=== PATIENT | female | born 1990 | race Caucasian/White ===

== ENCOUNTER 2019-04-06 02:39 | Emergency (ER) | payer OTHER ==
[~2019-04-06] VITALS: Ht 175.3 cm; Wt 72.7 kg
[2019-04-06] MEDS ORDERED: AUGM500T34 PO (04:50)
[2019-04-06 04:58] VITALS: BP 128/78
== END 2019-04-06 05:01 | disposition home or self-care (01) ==
LOC: M ED 02:39
DX: J02.9 Acute pharyngitis, unspecified (principal); Z88.1 Allergy status to other antibiotic agents; Z88.2 Allergy status to sulfonamides; Z88.8 Allergy status to other drugs, medicaments and biological substances

== ENCOUNTER → 2019-07-02 | Outpatient (CLI) | payer OTHER ==
[~2019-07-02] MED LIST: AUGM500T34 PO
--- NOTE | 2019-07-02 13:06 | REP ---
REASON: Pelvic pain. PRIORS: None. AP pelvis and bilateral AP and frog lateral views of the hip. AP PELVIS: A single AP view of the pelvis was performed. The hip joint spaces are symmetric and relatively well maintained. There is no acute fracture or destructive osseous lesion. RIGHT HIP: FINDINGS: The hip joint space is symmetric and relatively well maintained. T here is no acute or destructive osseous lesion. LEFT HIP: FINDINGS: The hip joint space is symmetric and relatively well maintained. T here is no acute or destructive osseous lesion. There is an incidental synovial herniation pit seen in the femoral neck region. Electronically Signed by Marco Gillespie DO 07/02/2019 02:38 P
== END ==
LOC: M SMT 09:49
PROVIDERS: ATTEND Family Medicine
DX: R10.2 Pelvic and perineal pain (principal)

== ENCOUNTER → 2019-10-17 | Outpatient (CLI) | payer OTHER ==
[2019-10-17 17:50] LABS: FREE T4 0.91 NG/DL (0.76-1.46); THYROID STIMULATING HORMONE 1.4 uIU/ML (0.358-3.740)
== END ==
LOC: M PLALAB 12:24
PROVIDERS: ATTEND Family Medicine
DX: R94.6 Abnormal results of thyroid function studies (principal)

== ENCOUNTER → 2019-11-13 | Outpatient (REF) | payer OTHER ==
[~2019-11-13] MED LIST changes: +COLA100C5 PO; +IBUP-1022; +MIRA1POW3 PO; +ONDA-83; +REGL10TA6 PO
== END ==
LOC: M LAB REF 16:56
PROVIDERS: ATTEND Physician Assistant
DX: R39.12 Poor urinary stream (principal)

== ENCOUNTER 2019-11-15 18:11 | Emergency (ER) | payer OTHER ==
[~2019-11-15] VITALS: Ht 175.3 cm; Wt 78.6 kg
[~2019-11-15 18:11] MED LIST changes: -COLA100C5 PO; -IBUP-1022; -MIRA1POW3 PO; -ONDA-83; -REGL10TA6 PO
[2019-11-15] MEDS ORDERED: MIRA1POW3 PO (18:28)
[2019-11-15] MEDS ORDERED: ONDA-83 (18:28)
[2019-11-15] MEDS ORDERED: COLA100C5 PO ×2 (18:28)
[2019-11-15] MEDS ORDERED: IBUP-1022 (18:28)
[2019-11-15] MEDS ORDERED: ONDANSETRON 4MG/2ML VIAL (J2405) IV ONE (19:30)
[2019-11-15] MEDS ORDERED: NS 1,000 ML IV ONE (19:30)
[2019-11-15] MEDS ORDERED: KETOROLAC 30 MG/ML VIAL (J1885) IV ONE (19:30)
[2019-11-15 19:46] LABS: BASO % 0.5 % (0.0-1.0); EOS # 0.1 10^3/uL (0.0-0.5); EOS % 1.2 % (0.0-3.0); HEMATOCRIT 38.9 % (36.0-47.0); HEMOGLOBIN 13.2 g/dl (12.0-15.5); LYMPH # 2.5 10^3/uL (1.5-5.0); LYMPH % 29.8 % (24.0-44.0); MEAN CORPUSCULAR HEMOGLOBIN 30.5 pg (27.0-33.0); MEAN CORPUSCULAR HGB CONC 33.9 g/dl (32.0-36.5); MEAN CORPUSCULAR VOLUME 89.8 fl (80.0-96.0); MONO # 0.6 10^3/uL (0.0-0.8); MONO % 7.4 % (0.0-5.0); NEUTROPHILS # 5.2 10^3/uL (1.5-8.5); PLATELET COUNT, AUTOMATED 265 10^3/uL (150-450); RED BLOOD COUNT 4.33 10^6/uL (4.00-5.40); WHITE BLOOD COUNT 8.5 10^3/uL (4.0-10.0)
[2019-11-15 20:23] LABS: ALBUMIN 4.1 GM/DL (3.2-5.2); BILIRUBIN,DIRECT 0.1 MG/DL (0.0-0.2); BILIRUBIN,TOTAL 0.5 MG/DL (0.2-1.0); TOTAL PROTEIN 7.7 GM/DL (6.4-8.2)
[2019-11-15] MEDS ORDERED: METOCLOPRAMIDE INJ 10MG/2ML VIAL (J2765) IV ONE (20:45)
[2019-11-15] MEDS ORDERED: MECLIZINE 12.5 MG TAB PO ONE (21:15)
[2019-11-15] MEDS ORDERED: ISOVUE-370 76% 100ML VIAL (Q9967) As Ordered ONE (22:27)
--- NOTE | 2019-11-15 23:37 | REPVR ---
PROCEDURE INFORMATION: Exam: CT Abdomen And Pelvis With Contrast Exam date and time: 11/15/2019 10:51 PM Age: 29 years old Clinical indication: Abdominal pain; Localized; Right lower quadrant (rlq); Prior surgery; Surgery date: <1 month; Additional info: Rlq pain, recent appendectomy, severe nausea, dizziness TECHNIQUE: Imaging protocol: Computed tomography of the abdomen and pelvis with intravenous contrast. Radiation optimization: All CT scans at this facility use at least one of these dose optimization techniques: automated exposure control; mA and/or kV adjustment per patient size (includes targeted exams where dose is matched to clinical indication); or iterative reconstruction. Contrast material: ISO; Contrast volume: 100 ml; Contrast route: AC; COMPARISON: CR HIPS BILAT 2 VIEW W/AP PELVIS 07/02/2019 10:01 AM FINDINGS: Liver: The liver attenuation is 105 Hounsfield units and the spleen is 142 Hounsfield units. Probable right hepatic cyst measuring 6 mm. Gallbladder and bile ducts: Normal. No calcified stones. No ductal dilation. Pancreas: Normal. No ductal dilation. Spleen: Normal. No splenomegaly. Adrenals: Normal. No mass. Kidneys and ureters: Normal. No hydronephrosis. Stomach and bowel: There is a linear orientation of sutures or densities extending cephalad from the cecal tip suggesting prior appendectomy. Appendix: No evidence of appendicitis. Intraperitoneal space: Unremarkable. No free air. No significant fluid collection. Vasculature: Unremarkable. No abdominal aortic aneurysm. Lymph nodes: Unremarkable. No enlarged lymph nodes. Bladder: Unremarkable as visualized. Reproductive: Left ovarian follicle measuring up to 17 mm. Bones/joints: Unremarkable. No acute fracture. Soft tissues: Unremarkable. IMPRESSION: 1. Question of prior appendectomy. 2. Fatty infiltration of the liver. 3. Otherwise negative CT abdomen/pelvis. Electronically signed by: Jm Sherwood On 11/15/2019 23:37:02 PM
[2019-11-15 23:56] VITALS: BP 118/75
[2019-11-16] MEDS ORDERED: REGL10TA6 PO (00:14)
== END 2019-11-16 00:37 | disposition home or self-care (01) ==
LOC: M ED 18:11
DX: R42 Dizziness and giddiness (principal); F33.9 Major depressive disorder, recurrent, unspecified; F41.9 Anxiety disorder, unspecified; N80.9 Endometriosis, unspecified; Z88.1 Allergy status to other antibiotic agents; Z88.2 Allergy status to sulfonamides; Z88.5 Allergy status to narcotic agent; Z88.8 Allergy status to other drugs, medicaments and biological substances
CPT/HCPCS: 36415; 74177; 80047; 80076; 81001; 83690; 85025; 86850; 86900; 86901; 96361; 96374; 96375; 99284; J1885; J2405; J2765; Q9967

== ENCOUNTER → 2020-08-21 | Outpatient (CLI) | payer OTHER ==
[~2020-08-21] MED LIST changes: +COLA100C5 PO; +IBUP-1022; +MIRA1POW3 PO; +ONDA-83; +REGL10TA6 PO
--- NOTE | 2020-08-21 13:57 | REPPI ---
INDICATION: PAIN LEFT FOOT. COMPARISON: None. TECHNIQUE: Four views FINDINGS: The joint spaces are symmetric and relatively well maintained. There is no evidence of acute fracture or destructive osseous lesion. IMPRESSION: Negative. <Electronically signed by Marco Gillespie > 08/21/20 [id number]
== END ==
LOC: M PLAIMG 12:11
PROVIDERS: ATTEND Physician Assistant
DX: M79.672 Pain in left foot (principal)

== ENCOUNTER 2020-11-23 09:17 | Emergency (ER) | payer OTHER ==
[~2020-11-23] VITALS: Ht 175.3 cm; Wt 81.2 kg
--- OUTSIDE RECORDS SUMMARY | 2020-11-23 09:23 | CCD | Continuity of Care Document ---
Author Author Mable DEL CID Organization [place] [address] Phone [phone] Care Team Providers Care Assistant Professor Of Biology Name Role Phone Shavonne Sam D.O. AUTM Problems Active Problems Provider Date Allergic rhinitis PRAVEEN Rubio Onset: 06/07/2019 Social History Type Date Description Comments Sex Unknown ETOH Use Occasionally consumes alcohol Tobacco Use Start: Unknown Patient has never smoked Recreational Drug Use Denies Drug Use Smoking Status Reviewed: 07/04/19 Patient has never smoked Exercise Type/Frequency Walks 3 times a week Sun Exposure Uses sunscreen Seat Belt/Car Seat Always uses seat belt Allergies, Adverse Reactions, Alerts Active Allergies Reaction Severity Comments Date Sulfamethoxazole / Trimethoprim 05/08/2019 Cefzil 05/08/2019 Medications Active Medications SIG Qnty Indications Ordering Provide r Date Flonase Allergy Relief 50mcg/Act Suspension 2 sprays in each nostril daily 9.900ml Shavonne Schafer D.OSorin 09/12/2019 Montelukast Sodium 10mg Tablets 1 by mouth every day 90tabs Shavonne Sam D.OSorin Multivitamin Adult Tablets 1 by mouth every day Unknown Medications Administered in Office Medication SIG Qnty Indications Ordering Provider Date Immunization Administration Single Or Co mbination Injection Nurse 07/09/2020 Immunization Administration Single Or Co mbination Injection Nurse 08/12/2019 Immunizations CPT Code Status Date Vaccine Lot # [id number] Given 07/09/2020 Influenza Virus Vaccine, Quadrivalent, Split, Preservative Free 61751 Given 07/09/2020 Influenza Virus Vaccine, Quadrivalent, Split, Preservative Free [id number] Given 08/12/2019 Influenza Virus Vaccine, Quadrivalent, Split, Preservative Free [id number] Vital Signs Date Vital Result Comment 11/06/2020 10:32am BP Systolic 116 mmHg BP Diastolic 68 mmHg Height 68.8 inches 5'8.80" Weight 181.50 lb BMI (Body Mass Index) 27.0 kg/m2 Heart Rate 91 /min Respiratory Rate 18 /min Body Temperature 98.1 F O2 % BldC Oximetry 96 % [place] Body Weight 140 lb 08/21/2020 11:34am BP Systolic 116 mmHg BP Diastolic 74 mmHg Height 68.8 inches 5'8.80" Weight 182.12 lb BMI (Body Mass Index) 27.0 kg/m2 Heart Rate 87 /min Respiratory Rate 18 /min Body Temperature 98.3 F O2 % BldC Oximetry 98 % [place] Body Weight 140 lb Results Test Acquired Date Facility Test Result H/L Range Note Laboratory test finding 11/06/2020 Inhouse Inhouse Urine positive Procedures Description No Information Available Medical Devices Description No Information Available Encounters Type Date Location Provider Dx Diagnosis Office Visit 11/06/2020 10:30a [facility] PRAVEEN Chan Z3A.01 Less than 8 weeks gestation of Z33.1 state, incidental Office Visit 08/21/2020 11:30a [facility] PRAVEEN Chan M79.672 Pain in left foot Office Visit 07/09/2020 10:00a [facility] Valeria boogie Z23 Encounter for immunization Assessments Date Code Description Provider 11/06/2020 Z3A.01 Less than 8 weeks gestation of p regnancy PRAVEEN Chan 11/06/2020 Z33.1 state, incidental PRAVEEN Neil 08/21/2020 M79.672 Pain in left foot PRAVEEN Kapoor 07/09/2020 Z23 Encounter for immunization Nurse Plan of Treatment No Information Available Functional Status Description No Information Available Mental Status Description No Information Available Referrals Refer to Reason for Referral Status Appt Date Ken Delgado MD . Prior IVF. and norm al conception with this current . looking to establish care and interested in a . Sent [facility] [address] [place] [address] [phone]
--- OUTSIDE RECORDS SUMMARY | 2020-11-23 09:24 | CCD | Continuity of Care Document ---
Author Mable Damon [facility] Organization Unknown Address [address] [place] [address] Phone [phone] Care Team Providers Care Ceramic Painter Name Role Phone Renée Jas Gipson AUTM [phone] Shavonne Sam D.O AUTM [phone] Problems Active Problems Provider Date Allergic rhinitis Onset: 06/07/2019 Social History Type Date Description Comments Sex Unknown ETOH Use Rare Tobacco Use Start: Unknown Patient has never smoked Recreational Drug Use Denies Drug Use Smoking Status Reviewed: 10/11/19 Patient has never smoked Allergies, Adverse Reactions, Alerts Active Allergies Reaction Severity Comments Date Sulfamethoxazole / Trimethoprim rash / st omach ache 10/11/2019 Cefzil rash / stomach ache 10/11/19 20 Inactive Allergies Sulfamethoxazole-Trimethoprim 10/14/2019 Cefprozil 10/14/2019 Trimethoprim unknown per pt 10/14/2019 Sulfamethoxazole unknown per pt 0 Cephalosporins 10/14/2019 Cephcil unknown 10/14/2019 Cefprozil 250 MG Oral Tablet [Cefzil] Nausea 10/14/2019 Sulfamethoxazole 80 MG/ML / Trimethoprim 16 MG/ML Injectable Nausea 10/14/2019 Bactrim Rash 10/14/2019 Cefprozil Rash 10/14/2019 Cefzil 10/14/2019 Sulfamethoxazole / Trimethoprim 10/14/2019 Cefzil Abdominal pain Mild 10/14/2019 Sulfamethoxazole / Trimethoprim Hives Mild 10/14/2019 Cefzil 10/14/2019 Sulfamethoxazole / Trimethoprim 10/14/2019 Medications Active Medications SIG Qnty Indications Ordering Provide r Date Singulair 10mg Tablets 1 tablet by mouth every night at bedtime 30tabs Dee Dee Walker M.D. Fluticasone Propionate Nasal [place] 24- H our 50mcg/Act Suspension 2 sprays each nostril every day Unknown Azelastine HCL (Nasal) 0.1% Soluti on 1 spray in each nostril twice a day as directed Un known Multivitamin Tablets Unknown Immunizations CPT Code Status Date Vaccine Lot # [id number] Given 08/12/2019 Influenza Virus Vaccine, Quadrivalent, Split, Preservative Free Vital Signs Date Vital Result Comment 08/04/2020 1:24pm Height 69 inches 5'9" Weight 178.00 lb BMI (Body Mass Index) 26.3 kg/m2 05/22/2020 12:30pm Body Temperature 99.4 F Results Description No Information Available Procedures Date Code Description Status 08/04/2020 61967 Myringotomy W/ Aspiration/Eustac hian Tube Inflate Completed Medical Devices Description No Information Available Encounters Type Date Location Provider Dx Diagnosis Office Visit 08/04/2020 1:00p [facility], [facility] Brennon Walker M.D. H92.03 Otalgia, bilateral J30.9 Allergic rhinitis, unspecifi ed J34.3 Hypertrophy of nasal turbina justin J34.2 Deviated nasal septum Office Visit 05/22/2020 12:10p [facility], RISHABH Walker M.D. H92.03 Otalgia, bilateral J30.9 Allergic rhinitis, unspecifi ed J34.3 Hypertrophy of nasal turbina justin J34.2 Deviated nasal septum Assessments Date Code Description Provider 08/04/2020 H92.03 Otalgia, bilateral Dee Dee mayberry M.D. 08/04/2020 J30.9 Allergic rhinitis, unspecified A rubio Walker M.D. 08/04/2020 J34.3 Hypertrophy of nasal turbinates Dee Dee Walker M.D. 08/04/2020 J34.2 Deviated nasal septum Dee Dee ramon M.D. 05/22/2020 H92.03 Otalgia, bilateral Dee Dee mayberry M.D. 05/22/2020 J30.9 Allergic rhinitis, unspecified A my Keon Walker M.D. 05/22/2020 J34.3 Hypertrophy of nasal turbinates Dee Dee Walker M.D. 05/22/2020 J34.2 Deviated nasal septum Dee Dee ramon M.D. Plan of Treatment No Information Available Functional Status Description No Information Available Mental Status Description No Information Available Referrals Refer to Dr Reason for Referral Status Appt Date Sam Francis MD Eustachian tube balloon dilation Sent [address] [facility] [address] [phone] Chapo Valdivia M.D. Allergy Evaluation Closed [address], [place] [address] [phone]
--- OUTSIDE RECORDS SUMMARY | 2020-11-23 09:24 | CCD | Continuity of Care Document ---
Author Author Mable DEL CID Organization [place] [address] Phone [phone] Care Team Providers Care Asphalt Heater Operator Name Role Phone Shavonne Sam D.O. AUTM [...] CPT Code Status Date Vaccine Lot # [id number] Given 07/09/2020 Influenza Virus Vaccine, Quadrivalent, Split, Preservative Free [id number] Given 07/09/2020 Influenza Virus Vaccine, Quadrivalent, Split, Preservative Free [id number] Given 08/12/2019 Influenza Virus Vaccine, Quadrivalent, Split, Preservative Free [id number] Vital Signs Date Vital Result Comment 11/06/2020 10:32am BP Systolic 116 mmHg BP Diastolic 68 mmHg Height 68.8 inches 5'8.80" Weight 181.50 lb BMI (Body Mass Index) 27.0 kg/m2 Heart Rate 91 /min Respiratory Rate 18 /min Body Temperature 98.1 F O2 % BldC Oximetry 96 % [place] Body Weight 140 lb 08/21/2020 11:34am BP Systolic 116 mmHg BP Diastolic 74 mmHg Height 68.8 inches 5'8.80" Weight 182.12 lb BMI (Body Mass Index) 27.0 kg/m2 Heart Rate 87 /min Respiratory Rate 18 /min Body Temperature 98.3 F O2 % BldC Oximetry 98 % [place] Body Weight 140 lb Results Description No Information Available Procedures Description No Information Available Medical Devices Description No Information Available Encounters Type Date Location Provider Dx Diagnosis Office Visit 08/21/2020 11:30a [facility] PRAVEEN Chan M79.672 Pain in left foot Office Visit 07/09/2020 10:00a Family Medicine [facility] Valeria boogie Z23 Encounter for immunization Assessments Date Code Description Provider 11/06/2020 Z3A.01 Less than 8 weeks gestation of p beatrice PRAVEEN Chan 11/06/2020 Z33.1 state, incidental PRAVEEN Neil 08/21/2020 M79.672 Pain in left foot PRAVEEN Kapoor 07/09/2020 Z23 Encounter for immunization Nurse Plan of Treatment 11/06/2020 - PRAVEEN Chan* Z3A.01 Less than 8 weeks gestation of * New Labs:* Inhouse Urine , Ordered: 11/06/20 * Referral:* Ken Delgado MD, teacher associate/Phys/Osteo * Z33.1 state, incidental Functional Status Description No Information Available Mental Status Description No Information Available Referrals Refer to Reason for Referral Status Appt Date Ken Delgado MD . Prior IVF. and norm al conception with this current . looking to establish care and interested in a . Created [facility] [address] [place] [address] [phone]
--- OUTSIDE RECORDS SUMMARY | 2020-11-23 09:24 | CCD | Continuity of Care Document ---
Author Author Mable SMITH Organization Unknown Address [address], [place] [address] Phone [phone] Care Team Providers Care School Nurse Name Role Phone Shavonne Sam Oksana DO AUTM Dee Dee Hairston MD AUTM [phone] Problems Active Problems Provider Date Allergic rhinitis due to house dust mite Chapo Smith M.D. Onset: 07/08/2020 Note: 3+ reaction to dust mites on intra dermal test completed in 2019. Social History Type Date Description Comments Sex Unknown Tobacco Use Reviewed: 10/08/20 Patient has never smoked Smoking Status Reviewed: 10/08/20 Patient has never smoked Allergies, Adverse Reactions, Alerts Active Allergies Reaction Severity Comments Date Sulfamethoxazole / Trimethoprim Hives 07/08/2020 Cefzil Nausea 07/08/2020 Chlorhexidine Hives 07/08/2020 Medications Active Medications SIG Qnty Indications Ordering Provide r Date Montelukast Sodium 10mg Tablets Take 1 Tablet By Mouth Once Daily AT Night AT Bedtime U nknown Flonase Sensimist 27 .5mcg/[place] Suspension 2 sprays each nostril every night Unknown Immunizations Description No Information Available Vital Signs Date Vital Result Comment 10/08/2020 10:33am Weight 182.12 lb Height 69.5 inches 5'9.50" Heart Rate 102 /min Respiratory Rate 18 /min BP Systolic 119 mmHg BP Diastolic 74 mmHg BMI (Body Mass Index) 26.5 kg/m2 07/08/2020 11:14am Weight 181.12 lb Height 69.5 inches 5'9.50" Heart Rate 92 /min Respiratory Rate 18 /min BP Systolic 108 mmHg BP Diastolic 77 mmHg BMI (Body Mass Index) 26.4 kg/m2 Results Description No Information Available Procedures Date Code Description Status 07/08/2020 62111 Allergy Tests Intrad ermal W/ Allergenic Extr Immediate Reaction Completed 07/08/2020 62357 Allergy Tests Percutaneous W/ Al lergenic Extracts Completed Medical Devices Description No Information Available Encounters Type Date Location Provider Dx Diagnosis Office Visit 10/08/2020 10:30a Main Office Chapo Smith M.D. J30.89 Other allergic rhinitis Assessments Date Code Description Provider 10/08/2020 J30.89 Allergic rhinitis due to house d ust mite Chapo Smith M.D. Plan of Treatment Future Appointment(s):* 04/08/2021 10:30 am - Chapo Smith M.D. at Main Office 10/08/2020 - Chapo Smith M.D.* J30.89 Allergic rhinitis due to house dust mite* Recommendations:* The patient should continue using nasal spray every night. The spray should be used consistently to be effective. I still reviewed effective allergy avoidance measures for dust mites. Because of the severity of allergy problem allergy immunotherapy should be considered strongly if symptoms continue or fail to improve with medications. I explained the risks and benefits associated with immunotherapy at this time as well. * All * Follow up:* 6 months. Sooner if needed. Functional Status Description No Information Available Mental Status Description No Information Available Referrals Description No Information Available
--- OUTSIDE RECORDS SUMMARY | 2020-11-23 09:24 | CCD | Continuity of Care Document ---
Author Mable Damon [facility] Organization Unknown Address [address] [place] [address] Phone [phone] Care Team Providers Care Rail Car Repairer Name Role Phone Renée Jas Gipson AUTM [phone] Shavonne Sam D.O AUTM [phone] Problems Active Problems Provider Date Allergic [...] Dee Dee Walker M.D. Fluticasone Propionate Nasal [place] 24- H our 50mcg/Act Suspension 2 sprays each nostril every day Unknown Azelastine HCL (Nasal) 0.1% Soluti on 1 spray in each nostril twice a day as directed Un known Multivitamin Tablets Unknown Immunizations CPT Code Status Date Vaccine Lot # [id number] Given 08/12/2019 Influenza Virus Vaccine, Quadrivalent, Split, Preservative Free Vital Signs Date Vital Result Comment 08/04/2020 1:24pm Height 69 inches 5'9" Weight 178.00 lb BMI (Body Mass Index) 26.3 kg/m2 05/22/2020 12:30pm Body Temperature 99.4 F Results Description No Information Available Procedures Date Code Description Status 09/21/2020 06094 Tympanometry Completed 09/21/2020 63585 Audiometry Threshold Evaluation & Speech Recognition Completed 08/04/2020 51115 Myringotomy W/ Aspiration/Eustac hian Tube Inflate Completed Medical Devices Description No Information Available Encounters Type Date Location Provider Dx Diagnosis Office Visit 08/04/2020 1:00p [facility], [facility] Brennon Walker M.D. H92.03 Otalgia, bilateral J30.9 Allergic rhinitis, unspecifi ed J34.3 Hypertrophy of nasal turbina justin J34.2 Deviated nasal septum Office Visit 05/22/2020 12:10p [facility] H92.03 Otalgia, bilateral J30.9 Allergic rhinitis, unspecifi ed J34.3 Hypertrophy of nasal turbina justin J34.2 Deviated nasal septum Assessments Date Code Description Provider 09/21/2020 H92.02 Otalgia, left ear Ann harman, CCC-A 09/21/2020 H90.3 Sensorineural hearing loss, bila teral Ann Gillespie, CCC-A 09/21/2020 H92.02 Otalgia, left ear Dee Dee swanson M.D. 08/04/2020 H92.03 Otalgia, bilateral Dee Dee mayberry M.D. 08/04/2020 J30.9 Allergic rhinitis, unspecified A rubio Walker M.D. 08/04/2020 J34.3 Hypertrophy of nasal turbinates Dee Dee Walker M.D. 08/04/2020 J34.2 Deviated nasal septum Dee Dee ramon M.D. 05/22/2020 H92.03 Otalgia, bilateral Dee Dee mayberry M.D. 05/22/2020 J30.9 Allergic rhinitis, unspecified A rubio Walker M.D. 05/22/2020 J34.3 Hypertrophy of nasal turbinates Dee Dee Walker M.D. 05/22/2020 J34.2 Deviated nasal septum Dee Dee ramon M.D. Plan of Treatment No Information Available Functional Status Description No Information Available Mental Status Description No Information Available Referrals Refer to Dr Reason for Referral Status Appt Date Sam Francis MD Eustachian tube balloon dilation Sent [address] [place] [address] [phone] Chapo Valdivia M.D. Allergy Evaluation Closed [address], [place] [address] [phone]
--- OUTSIDE RECORDS SUMMARY | 2020-11-23 09:24 | CCD | Continuity of Care Document ---
Author Author NurseMable Organization Unknown Address [address] [place] [address] [address] [place] [address] Phone [phone] Care Team Providers Care Vascular Technician Name Role Phone Shavonne Sam D.O. AUTM [phone] Problems Active Problems Provider Date Allergic rhinitis [...] mouth every day 90tabs Shavonne Sam D.OSorin Ibuprofen 600mg Tablets Take 1 Tablet By Mouth Every 6 Hours Unknown Medications Administered in Office Medication SIG Qnty Indications Ordering Provider Date Immunization Administration Single Or Co mbination Injection Nurse 07/09/2020 Immunization Administration Single Or Co mbination Injection Nurse 08/12/2019 Immunizations CPT Code Status Date Vaccine Lot # [id number] Given 07/09/2020 Influenza Virus Vaccine, Quadrivalent, Split, Preservative Free [id number] Given 07/09/2020 Influenza Virus Vaccine, Quadrivalent, Split, Preservative Free [id number] Given 08/12/2019 Influenza Virus Vaccine, Quadrivalent, Split, Preservative Free [id number] Vital Signs Date Vital Result Comment 08/21/2020 11:34am BP Systolic 116 mmHg BP Diastolic 74 mmHg Height 68.8 inches 5'8.80" Weight 182.12 lb BMI (Body Mass Index) 27.0 kg/m2 Heart Rate 87 /min Respiratory Rate 18 /min Body Temperature 98.3 F O2 % BldC Oximetry 98 % [place] Body Weight 140 lb 11/13/2019 2:59pm BP Systolic 114 mmHg BP Diastolic 74 mmHg Height 68.8 inches 5'8.80" Weight 173.25 lb BMI (Body Mass Index) 25.7 kg/m2 Heart Rate 95 /min Respiratory Rate 20 /min Body Temperature 98.3 F O2 % BldC Oximetry 95 % [place] Body Weight 140 lb Results Description No Information Available Procedures Description No Information Available Medical Devices Description No Information Available Encounters Type Date Location Provider Dx Diagnosis Office Visit 08/21/2020 11:30a Family Medicine [facility] PRAVEEN Chan M79.672 Pain in left foot Office Visit 07/09/2020 10:00a [facility] Valeria boogie Z23 Encounter for immunization Assessments Date Code Description Provider 08/21/2020 M79.672 Pain in left foot PRAVEEN Kapoor 07/09/2020 Z23 Encounter for immunization Nurse Plan of Treatment 08/21/2020 - PRAVEEN Chan* M79.672 Pain in left foot* Comments:* Please get an x ray to exclude fracture, dislocation, or subluxation. Try to ranjit tape your toes and apply ice to help with pain. Functional Status Description No Information Available Mental Status Description No Information Available Referrals Description No Information Available
--- OUTSIDE RECORDS SUMMARY | 2020-11-23 09:24 | CCD | Continuity of Care Document ---
Author Author Mable DEL CID Organization [place] [address] Phone [phone] Care Team Providers Care Scrap Crane Operator Name Role Phone Shavonne Sam D.O. [...] CPT Code Status Date Vaccine Lot # [id number] Given 07/09/2020 Influenza Virus Vaccine, Quadrivalent, Split, Preservative Free [id number] Given 07/09/2020 Influenza Virus Vaccine, Quadrivalent, Split, Preservative Free [id number] Given 08/12/2019 Influenza Virus Vaccine, Quadrivalent, Split, Preservative Free [id number] Vital Signs Date Vital Result Comment 11/06/2020 10:32am BP Systolic 116 mmHg BP Diastolic 68 mmHg Height 68.8 inches 5'8.80" Weight 181.50 lb BMI (Body Mass Index) 27.0 kg/m2 Heart Rate 91 /min Respiratory Rate 18 /min Body Temperature 98.1 F O2 % BldC Oximetry 96 % Merrick Body Weight 140 lb 08/21/2020 11:34am BP Systolic 116 mmHg BP Diastolic 74 mmHg Height 68.8 inches 5'8.80" Weight 182.12 lb BMI (Body Mass Index) 27.0 kg/m2 Heart Rate 87 /min Respiratory Rate 18 /min Body Temperature 98.3 F O2 % BldC Oximetry 98 % Merrick Body Weight 140 lb Results Test Acquired Date Facility Test Result H/L Range Note Laboratory test finding 11/06/2020 Inhouse Inhouse Urine positive Procedures Description No Information Available Medical Devices Description No Information Available Encounters Type Date Location Provider Dx Diagnosis Office Visit 08/21/2020 11:30a Family Medicine [facility] PRAVEEN Chan M79.672 Pain in left foot Office Visit 07/09/2020 10:00a Family Medicine [facility] Valeria boogie Z23 Encounter for immunization Assessments Date Code Description Provider 11/06/2020 Z3A.01 Less than 8 weeks gestation of p beatrice PRAVEEN Chan 11/06/2020 Z33.1 state, incidental PRAVEEN Neil 08/21/2020 M79.672 Pain in left foot PRAVEEN Kapoor 07/09/2020 Z23 Encounter for immunization Nurse Plan of Treatment 11/06/2020 - PRAVEEN Chan* Z3A.01 Less than 8 weeks gestation of * Referral:* Ken Delgado MD, dining room host/Phys/Osteo * Z33.1 state, incidental Functional Status Description No Information Available Mental Status Description No Information Available Referrals Refer to Reason for Referral Status Appt Date Ken Delgado MD . Prior IVF. and norm al conception with this current . looking to establish care and interested in a . [facility] [address] [place] [address] [phone]
--- OUTSIDE RECORDS SUMMARY | 2020-11-23 09:24 | CCD ---
Author Author [facility] Organization [facility] Address Unknown Phone Unavailable Care Team Providers Care Clean Room Operator Name Role Phone SONIA SMITH MD Unavailable Unavailable SONIA SMITH MD Unavailable Unavailable SONIA SMITH MD Unavailable Unavailable SONIA SMITH MD Unavailable Unavailable SONIA SMITH MD Unavailable Unavailable SONIA SMITH MD Unavailable Unavailable SONIA SMITH MD Unavailable Unavailable SONIA SMITH MD Unavailable Unavailable SONIA SMITH MD Unavailable Unavailable SONIA SMITH MD Unavailable Unavailable SONIA SMITH MD Unavailable Unavailable SONIA SMITH MD Unavailable Unavailable SONIA SMITH MD Unavailable Unavailable SONIA SMITH MD Unavailable Unavailable SONIA SMITH MD Unavailable Unavailable SONIA SMITH MD Unavailable Unavailable SONIA SMITH MD Unavailable Unavailable SONIA SMITH MD Unavailable Unavailable SONIA SMITH MD Unavailable Unavailable SONIA SMITH MD Unavailable Unavailable SONIA SMITH MD Unavailable Unavailable SONIA SMITH MD Unavailable Unavailable SONIA SMITH MD Unavailable Unavailable SONIA SMITH MD Unavailable Unavailable SONIA SMITH MD Unavailable Unavailable SONIA SMITH MD Unavailable Unavailable SONIA SMITH MD Unavailable Unavailable SONIA SMITH MD Unavailable Unavailable SONIA SMITH MD Unavailable Unavailable SONIA SMITH MD Unavailable Unavailable SONIA SMITH MD Unavailable Unavailable SONIA SMITH MD Unavailable Unavailable SONIA SMITH MD Unavailable Unavailable SONIA SMITH MD Unavailable Unavailable CHRSONIA AMAYA MD Unavailable Unavailable CHRSONIA AMAYA MD Unavailable Unavailable CHRSONIA AMAYA MD Unavailable Unavailable CHROSTSONIA MANNING MD Unavailable Unavailable CHRSONIA AMAYA MD Unavailable Unavailable CHRSONIA AMAYA MD Unavailable Unavailable MANGANIELLO, IGNACIO CFNP Unavailable Unavailable MANGANIELLO, IGNACIO CFNP Unavailable Unavailable MANGANIELLO, IGNACIO CFNP Unavailable Unavailable MANGANIELLO, IGNACIO CFNP Unavailable Unavailable MANGANIELLO, IGNACIO CFNP Unavailable Unavailable MANGANIELLO, IGNACIO CFNP Unavailable Unavailable MANGANIELLO, IGNACIO CFNP Unavailable Unavailable MANGANIELLO, IGNACIO CFNP Unavailable Unavailable MANGANIELLO, IGNACIO CFNP Unavailable Unavailable MANGANIELLO, IGNACIO CFNP Unavailable Unavailable MANGANIELLO, IGNACIO CFNP Unavailable Unavailable MANGANIELLO, IGNACIO CFNP Unavailable Unavailable MANGANIELLO, IGNACIO CFNP Unavailable Unavailable MANGANIELLO, IGNACIO CFNP Unavailable Unavailable MANGANIELLO, IGNACIO CFNP Unavailable Unavailable MANGANIELLO, IGNACIO CFNP Unavailable Unavailable MANGANIELLO, IGNACIO CFNP Unavailable Unavailable MANGANIELLO, IGNACIO CFNP Unavailable Unavailable MANGANIELLO, IGNACIO CFNP Unavailable Unavailable MANGANIELLO, IGNACIO CFNP Unavailable Unavailable MANGANIELLO, IGNACIO CFNP Unavailable Unavailable MANGANIELLO, IGNACIO CFNP Unavailable Unavailable MANGANIELLO, IGNACIO CFNP Unavailable Unavailable MANGANIELLO, IGNACIO CFNP Unavailable Unavailable MANGANIELLO, IGNACIO CFNP Unavailable Unavailable MANGANIELLO, IGNACIO CFNP Unavailable Unavailable MANGANIELLO, IGNACIO CFNP Unavailable Unavailable MANGANIELLO, IGNACIO CFNP Unavailable Unavailable MANGANIELLO, IGNACIO CFNP Unavailable Unavailable MANGANIELLO, IGNACIO CFNP Unavailable Unavailable MANGANIELLO, IGNACIO CFNP Unavailable Unavailable MANGANIELLO, IGNACIO CFNP Unavailable Unavailable MANGANIELLO, IGNACIO CFNP Unavailable Unavailable MANGANIELLO, IGNACIO CFNP Unavailable Unavailable MANGANIELLO, IGNACIO CFNP Unavailable Unavailable Leonela Francis Unavailable Unavailable Leonela rFancis Unavailable Unavailable Leonela Francis Unavailable Unavailable Leonela Francis Unavailable Unavailable Leonela Francis Unavailable Unavailable Leonela Francis Unavailable Unavailable Leonela Francis Unavailable Unavailable Leonela Francis Unavailable Unavailable Leonela Francis Unavailable Unavailable Tito, D Sam Unavailable Unavailable Tito, D Sam Unavailable Unavailable Tito, D Sam Unavailable Unavailable Tito, D Sam Unavailable Unavailable Tito, D Sam Unavailable Unavailable Tito, D Sam Unavailable Unavailable Tito, D Sam Unavailable Unavailable Tito, D Sam Unavailable Unavailable Tito, D Sam Unavailable Unavailable Tito, D Sam Unavailable Unavailable Tito, D Sam Unavailable Unavailable Tito, D Sam Unavailable Unavailable Tito, D Sam Unavailable Unavailable Tito, D Sam Unavailable Unavailable Tito, D Sam Unavailable Unavailable Tito, D Sam Unavailable Unavailable Tito, D Sam Unavailable Unavailable Tito, D Sam Unavailable Unavailable Tito, D Sam Unavailable Unavailable Tito, D Sam Unavailable Unavailable Tito, D Sam Unavailable Unavailable Tito, D Sam Unavailable Unavailable Tito, D Sam Unavailable Unavailable Tito, D Sam Unavailable Unavailable Tito, D Sam Unavailable Unavailable Tito, D Sam Unavailable Unavailable Tito, D Sam Unavailable Unavailable Tito, D Sam Unavailable Unavailable Tito, D Sam Unavailable Unavailable Tito, D Sam Unavailable Unavailable Tito, D Sam Unavailable Unavailable Tito, D Sam Unavailable Unavailable Tito, D Sam Unavailable Unavailable Tito, D Sam Unavailable Unavailable Tito, D Sam Unavailable Unavailable Tito, D Sam Unavailable Unavailable Tito, D Sam Unavailable Unavailable Tito, D Sam Unavailable Unavailable Tito, D Sam Unavailable Unavailable Tito, D Sam Unavailable Unavailable Tito, D Sam Unavailable Unavailable Ttio, D Sam Unavailable Unavailable Tito, D Sam Unavailable Unavailable MEDENT_806, NA Unavailable Unavailable CHELSEY-JANELLE, MEGAN DO Unavailable Unavailable CHELSEY-JANELLE, MEGAN DO Unavailable Unavailable CHELSEY-JANELLE, MEGAN DO Unavailable Unavailable CHELSEY-JANELLE, MEGAN DO Unavailable Unavailable CHELSEY-JANELLE, MEGAN DO Unavailable Unavailable CHELSEY-JANELLE, MEGAN DO Unavailable Unavailable CHELSEY-JANELLE, MEGAN DO Unavailable Unavailable CHELSEY-JANELLE, MEGAN DO Unavailable Unavailable CHELSEY-JANELLE, MEGAN DO Unavailable Unavailable CHELSEY-JANELLE, MEGAN DO Unavailable Unavailable CHELSEY-JANELLE, MEGAN DO Unavailable Unavailable CHELSEY-JANELLE, MEGAN DO Unavailable Unavailable CHELSEY-JANELLE, MEGAN DO Unavailable Unavailable CHELSEY-JANELLE, MEGAN DO Unavailable Unavailable CHELSEY-JANELLE, MEGAN DO Unavailable Unavailable CHELSEY-JANELLE, MEGAN DO Unavailable Unavailable CHELSEY-JANELLE, MEGAN DO Unavailable Unavailable CHELSEY-JANELLE, MEGAN DO Unavailable Unavailable CHELSEY-JANELLE, MEGAN DO Unavailable Unavailable CHELSEY-JANELLE, MEGAN DO Unavailable Unavailable CHELSEY-JANELLE, MEGAN DO Unavailable Unavailable CHELSEY-JANELLE, MEGAN DO Unavailable Unavailable CHELSEY-JANELLE, MEGAN DO Unavailable Unavailable CHELSEY-JANELLE, MEGAN DO Unavailable Unavailable CHELSEY-JANELLE, MEGAN DO Unavailable Unavailable CHELSEY-JANELLE, MEGAN DO Unavailable Unavailable CHELSEY-JANELLE, MEGAN DO Unavailable Unavailable CHELSEY-JANELLE, MEGAN DO Unavailable Unavailable CHELSEY-JANELLE, MEGAN DO Unavailable Unavailable CHELSEY-JANELLE, MEGAN DO Unavailable Unavailable CHELSEY-JANELLE, MEGAN DO Unavailable Unavailable CHELSEY-JANELLE, MEGAN DO Unavailable Unavailable CHELSEY-JANELLE, MEGAN DO Unavailable Unavailable CHELSEY-JANELLE, MEGAN DO Unavailable Unavailable CHELSEY-JANELLE, MEGAN DO Unavailable Unavailable CHELSEY-JANELLE, MEGAN DO Unavailable Unavailable CHELSEY-JANELLE, MEGAN DO Unavailable Unavailable CHELSEY-JANELLE, MEGAN DO Unavailable Unavailable CHELSEY-JANELLE, MEGAN DO Unavailable Unavailable CHELSEY-JANELLE, MEGAN DO Unavailable Unavailable CHELSEY-JANELLE, MEGAN DO Unavailable Unavailable CHELSEY-JANELLE, MEGAN DO Unavailable Unavailable CHELSEY-JANELLE, MEGAN DO Unavailable Unavailable CHELSEY-JANELLE, MEGAN DO Unavailable Unavailable CHELSEY-JANELLE, MEGAN DO Unavailable Unavailable CHELSEY-JANELLE, MEGAN DO Unavailable Unavailable CHELSEY-JANELLE, MEGAN DO Unavailable Unavailable CHELSEY-JANELLE, MEGAN DO Unavailable Unavailable CHELSEY-JANELLE, MEGAN DO Unavailable Unavailable CHELSEY-JANELLE, MEGAN DO Unavailable Unavailable CHELSEY-JANELLE, MEGAN DO Unavailable Unavailable CHELSEY-JANELLE, MEGAN DO Unavailable Unavailable CHELSEY-JANELLE, MEGAN DO Unavailable Unavailable CHELSEY-JANELLE, MEGAN DO Unavailable Unavailable CHELSEY-JANELLE, MEGAN DO Unavailable Unavailable CHELSEY-JANELLE, MEGAN DO Unavailable Unavailable CHELSEY-JANELLE, MEGAN DO Unavailable Unavailable CHELSEY-JANELLE, MEGAN DO Unavailable Unavailable CHELSEY-JANELLE, MEGAN DO Unavailable Unavailable CHELSEY-JANELLE, MEGAN DO Unavailable Unavailable CHELSEY-JANELLE, MEGAN DO Unavailable Unavailable CHELSEY-JANELLE, MEGAN DO Unavailable Unavailable CHELSEY-JANELLE, MEGAN DO Unavailable Unavailable CHELSEY-JANELLE, MEGAN DO Unavailable Unavailable CHELSEY-JANELLE, MEGAN DO Unavailable Unavailable CHELSEY-JANELLE, MEGAN DO Unavailable Unavailable CHELSEY-JANELLE, MEGAN DO Unavailable Unavailable CHELSEY-JANELLE, MEGAN DO Unavailable Unavailable CHELSEY-JANELLE, MEGAN DO Unavailable Unavailable CHELSEY-JANELLE, MEGAN DO Unavailable Unavailable CHELSEY-JANELLE, MEGAN DO Unavailable Unavailable CHELSEY-JANELLE, MEGAN DO Unavailable Unavailable CHELSEY-JANELLE, MEGAN DO Unavailable Unavailable CHELSEY-JANELLE, MEGAN DO Unavailable Unavailable CHELSEY-JANELLE, MEGAN DO Unavailable Unavailable CHELSEY-JANELLE, MEGAN DO Unavailable Unavailable CHELSEY-JANELLE, MEGAN DO Unavailable Unavailable CHELSEY-JANELLE, MEGAN DO Unavailable Unavailable CHELSEY-JANELLE, MEGAN DO Unavailable Unavailable CHELSEY-JANELLE, MEGAN DO Unavailable Unavailable CHELSEY-JANELLE, MEGAN DO Unavailable Unavailable CHELSEY-JANELLE, MEGAN DO Unavailable Unavailable Reynders, L Dee Dee MD Unavailable Unavailable Reynders, L Dee Dee MD Unavailable Unavailable Reynders, L Dee Dee MD Unavailable Unavailable Reynders, L Dee Dee MD Unavailable Unavailable Reynders, L Dee Dee MD Unavailable Unavailable Reynders, L Dee Dee MD Unavailable Unavailable Reynders, L Dee Dee MD Unavailable Unavailable Reynders, L Dee Dee MD Unavailable Unavailable Reynders, L Dee Dee MD Unavailable Unavailable Reynders, L Dee Dee MD Unavailable Unavailable Reynders, L Dee Dee MD Unavailable Unavailable Reynders, L Dee Dee MD Unavailable Unavailable Reynders, L Dee Dee Unavailable Unavailable Reynders, L Dee Dee MD Unavailable Unavailable Reynders, L Dee Dee MD Unavailable Unavailable Reynders, L Dee Dee MD Unavailable Unavailable Reynders, L Dee Dee MD Unavailable Unavailable Reynders, L Dee Dee MD Unavailable Unavailable Reynders, L Dee Dee MD Unavailable Unavailable Reynders, L Dee Dee MD Unavailable Unavailable Reynders, L Dee Dee MD Unavailable Unavailable Reynders, L Dee Dee MD Unavailable Unavailable Reynders, L Dee Dee MD Unavailable Unavailable Reynders, L Dee Dee MD Unavailable Unavailable Reynders, L Dee Dee MD Unavailable Unavailable Reynders, L Dee Dee MD Unavailable Unavailable Reynders, L Dee Dee MD Unavailable Unavailable Reynders, L Dee Dee MD Unavailable Unavailable Reynders, L Dee Dee MD Unavailable Unavailable Reynders, L Dee Dee MD Unavailable Unavailable Reynders, L Ede Dee MD Unavailable Unavailable Reynders, L Dee Dee MD Unavailable Unavailable Reynders, L Deed Ee MD Unavailable Unavailable Reynders, L Dee Dee MD Unavailable Unavailable Reynders, L Dee Dee MD Unavailable Unavailable Reynders, L Dee Dee MD Unavailable Unavailable Reynders, L Dee Dee MD Unavailable Unavailable Reynders, L Dee Ede MD Unavailable Unavailable Reynders, L Dee Dee MD Unavailable Unavailable Reynders, L Dee Dee MD Unavailable Unavailable Reynders, L Dee Dee MD Unavailable Unavailable Reynders, L Dee Dee MD Unavailable Unavailable Reynders, L Dee Dee MD Unavailable Unavailable Reynders, L Dee Dee MD Unavailable Unavailable Reynders, L Dee Dee MD Unavailable Unavailable Reynders, L Dee Dee MD Unavailable Unavailable Reynders, L Dee Dee MD Unavailable Unavailable Reynders, L Dee Dee MD Unavailable Unavailable Reynders, L Dee Dee MD Unavailable Unavailable Reynders, L Dee Dee MD Unavailable Unavailable Reynders, L Dee Dee MD Unavailable Unavailable Reynders, L Dee Dee MD Unavailable Unavailable Reynders, L Dee Dee MD Unavailable Unavailable Reynders, L Dee Dee MD Unavailable Unavailable Reynders, L Dee Dee MD Unavailable Unavailable Reynders, L Dee Dee MD Unavailable Unavailable Reynders, L Dee Dee MD Unavailable Unavailable Reynders, L Dee Dee MD Unavailable Unavailable Reynders, L Dee Dee MD Unavailable Unavailable Reynders, L Dee Dee MD Unavailable Unavailable Reynders, L Dee Dee MD Unavailable Unavailable Reynders, L Dee Dee MD Unavailable Unavailable Reynders, L Dee Dee MD Unavailable Unavailable Reynders, L Dee Dee MD Unavailable Unavailable Reynders, L Dee Dee MD Unavailable Unavailable Reynders, L Dee Dee MD Unavailable Unavailable Reynders, L Dee Dee MD Unavailable Unavailable Reynders, L Dee Dee MD Unavailable Unavailable Reynders, L Dee Dee MD Unavailable Unavailable Reynders, L Dee Dee MD Unavailable Unavailable Reynders, L Dee Dee MD Unavailable Unavailable Reynders, L Dee Dee MD Unavailable Unavailable Reynders, L Dee Dee MD Unavailable Unavailable Reynders, L Dee Dee MD Unavailable Unavailable Reynders, L Dee Dee MD Unavailable Unavailable CHELSEY-JANELLE, MEGAN DO Unavailable Unavailable CHELSEY-JANELLE, MEGAN DO Unavailable Unavailable CHELSEY-JANELLE, MEGAN DO Unavailable Unavailable CHELSEY-JANELLE, MEGAN DO Unavailable Unavailable CHELSEY-JANELLE, MEGAN DO Unavailable Unavailable CHELSEY-JANELLE, MEGAN DO Unavailable Unavailable CHELSEY-JANELLE, MEGAN DO Unavailable Unavailable CHELSEY-JANELLE, MEGAN DO Unavailable Unavailable CHELSEY-JANELLE, MEGAN DO Unavailable Unavailable CHELSEY-JANELLE, MEGAN DO Unavailable Unavailable CHELSEY-JANELLE, MEGAN DO Unavailable Unavailable CHELSEY-JANELLE, MEGAN DO Unavailable Unavailable CHELSEY-JANELLE, MEGAN DO Unavailable Unavailable CHELSEY-JANELLE, MEGAN DO Unavailable Unavailable CHELSEY-JANELLE, MEGAN DO Unavailable Unavailable CHELSEY-JANELLE, MEGAN DO Unavailable Unavailable CHELSEY-JANELLE, MEGAN DO Unavailable Unavailable CHELSEY-JANELLE, MEGAN DO Unavailable Unavailable CHELSEY-JANELLE, MEGAN DO Unavailable Unavailable CHELSEY-JANELLE, MEGAN DO Unavailable Unavailable CHELSEY-JANELLE, MEGAN DO Unavailable Unavailable CHELSEY-JANELLE, MEGAN DO Unavailable Unavailable CHELSEY-JANELLE, MEGAN DO Unavailable Unavailable CHELSEY-JANELLE, MEGAN DO Unavailable Unavailable CHELSEY-JANELLE, MEGAN DO Unavailable Unavailable CHELSEY-JANELLE, MEGAN DO Unavailable Unavailable CHELSEY-JANELLE, MEGAN DO Unavailable Unavailable CHELSEY-JANELLE, MEGAN DO Unavailable Unavailable CHELSEY-JANELLE, MEGAN DO Unavailable Unavailable CHELSEY-JANELLE, MEGAN DO Unavailable Unavailable CHELSEY-JANELLE, MEGAN DO Unavailable Unavailable CHELSEY-JANELLE, MEGAN DO Unavailable Unavailable CHELSEY-JANELLE, MEGAN DO Unavailable Unavailable CHELSEY-JANELLE, MEGAN DO Unavailable Unavailable CHELSEY-JANELLE, MEGAN DO Unavailable Unavailable CHELSEY-JANELLE, MEGAN DO Unavailable Unavailable CHELSEY-JANELLE, MEGAN DO Unavailable Unavailable CHELSEY-JANELLE, MEGAN DO Unavailable Unavailable CHELSEY-JANELLE, MEGAN DO Unavailable Unavailable CHELSEY-JANELLE, MEGAN DO Unavailable Unavailable CHELSEY-JANELLE, MEGAN DO Unavailable Unavailable CHELSEY-JANELLE, MEGAN DO Unavailable Unavailable CHELSEY-JANELLE, MEGAN DO Unavailable Unavailable CHELSEY-JANELLE, MEGAN DO Unavailable Unavailable CHELSEY-JANELLE, MEGAN DO Unavailable Unavailable CHELSEY-JANELLE, MEGAN DO Unavailable Unavailable CHELSEY-JANELLE, MEGAN DO Unavailable Unavailable CHELSEY-JANELLE, MEGAN DO Unavailable Unavailable CHELSEY-JANELLE, MEGAN DO Unavailable Unavailable CHELSEY-JANELLE, MEGAN DO Unavailable Unavailable CHELSEY-JANELLE, MEGAN DO Unavailable Unavailable CHELSEY-JANELLE, MEGAN DO Unavailable Unavailable CHELSEY-JANELLE, MEGAN DO Unavailable Unavailable CHELSEY-JANELLE, MEGAN DO Unavailable Unavailable CHELSEY-JANELLE, MEGAN DO Unavailable Unavailable CHELSEY-JANELLE, MEGAN DO Unavailable Unavailable CHELSEY-JANELLE, MEGAN DO Unavailable Unavailable CHELSEY-JANELLE, MEGAN DO Unavailable Unavailable CHELSEY-JANELLE, MEGAN DO Unavailable Unavailable CHELSEY-JANELLE, MEGAN DO Unavailable Unavailable CHELSEY-JANELLE, MEGAN DO Unavailable Unavailable CHELSEY-JANELLE, MEGAN DO Unavailable Unavailable CHELSEY-JANELLE, MEGAN DO Unavailable Unavailable CHELSEY-JANELLE, MEGAN DO Unavailable Unavailable CHELSEY-JANELLE, MEGAN DO Unavailable Unavailable CHELSEY-JANELLE, MEGAN DO Unavailable Unavailable CHELSEY-JANELLE, MEGAN DO Unavailable Unavailable CHELSEY-JANELLE, MEGAN DO Unavailable Unavailable CHELSEY-JANELLE, MEGAN DO Unavailable Unavailable CHELSEY-JANELLE, MEGAN DO Unavailable Unavailable CHELSEY-JANELLE, MEGAN DO Unavailable Unavailable CHELSEY-JANELLE, MEGAN DO Unavailable Unavailable CHELSEY-JANELLE, MEGAN DO Unavailable Unavailable CHELSEY-JANELLE, MEGAN DO Unavailable Unavailable CHELSEY-JANELLE, MEGAN DO Unavailable Unavailable CHELSEY-JANELLE, MEGAN DO Unavailable Unavailable CHELSEY-JANELLE, MEGAN DO Unavailable Unavailable CHELSEY-JANELLE, MEGAN DO Unavailable Unavailable CHELSEY-JANELLE, MEGAN DO Unavailable Unavailable CHELSEY-JANELLE, MEGAN DO Unavailable Unavailable CHELSEY-JANELLE, MEGAN DO Unavailable Unavailable CHELSEY-JANELLE, MEGAN DO Unavailable Unavailable Natalie YANCEY MD Unavailable Unavailable Natalie YANCEY MD Unavailable Unavailable Natalie YANCEY MD Unavailable Unavailable Natalie YANCEY MD Unavailable Unavailable VENERUS, Natalie SHOEMAKER MD Unavailable Unavailable VENERUS, Natalie SHOEMAKER MD Unavailable Unavailable VENERUS, Natalie SHOEMAKER MD Unavailable Unavailable VENERUS, Natalie SHOEMAKER MD Unavailable Unavailable VENERUS, Natalie SHOEMAKER MD Unavailable Unavailable O'jacqueline, A Oscar PA Unavailable Unavailable O'jacqueline, A Oscar PA Unavailable Unavailable O'jacqueline, A Oscar PA Unavailable Unavailable O'jacqueline, A Oscar PA Unavailable Unavailable O'jacqueline, A Oscar PA Unavailable Unavailable O'jacqueline, A Oscar PA Unavailable Unavailable O'jacqueline, A Oscar PA Unavailable Unavailable O'jacqueline, A Oscar PA Unavailable Unavailable O'jacqueline, A Oscar PA Unavailable Unavailable O'jacqueline, A Oscar PA Unavailable Unavailable O'jacqueline, A Oscar PA Unavailable Unavailable O'jacqueline, A Oscar PA Unavailable Unavailable O'jacqueline, A Oscar PA Unavailable Unavailable O'jacqueline, A Oscar PA Unavailable Unavailable O'jacqueline, A Oscar PA Unavailable Unavailable O'jacqueline, A Oscar PA Unavailable Unavailable O'jacqueline, A Oscar PA Unavailable Unavailable O'jacqueline, A Oscar PA Unavailable Unavailable O'jacqueline, A Oscar PA Unavailable Unavailable O'jacqueline, A Oscar PA Unavailable Unavailable O'jacqueline, A Oscar PA Unavailable Unavailable O'jacqueline, A Oscar PA Unavailable Unavailable O'jacqueline, A Oscar PA Unavailable Unavailable O'jacqueline, A Oscar PA Unavailable Unavailable O'jacqueline, A Oscar PA Unavailable Unavailable O'jacqueline, A Oscar PA Unavailable Unavailable O'jacqueline, A Oscar PA Unavailable Unavailable O'jacqueline, A Oscar PA Unavailable Unavailable O'jacqueline, A Oscar PA Unavailable Unavailable O'jacqueline, A Oscar PA Unavailable Unavailable O'jacqueline, A Oscar PA Unavailable Unavailable O'jacqueline, A Oscar PA Unavailable Unavailable O'jacqueline, A Oscar PA Unavailable Unavailable Re-disclosure Warning The records that you are about to access may contain information from federally-assisted alcohol or drug abuse programs. If such information is present, then the following federally mandated warning applies: This information has been disclosed to you from records protected by federal confidentiality rules (42 CFR part 2). The federal rules prohibit you from making any further disclosure of this information unless further disclosure is expressly permitted by the written consent of the person to whom it pertains or as otherwise permitted by 42 CFR part 2. A general authorization for the release of medical or other information is NOT sufficient for this purpose. The Federal rules restrict any use of the information to criminally investigate or prosecute any alcohol or drug abuse patient.The records that you are about to access may contain highly sensitive health information, the redisclosure of which is protected by Article 27-F of the [facility] Public Health law. If you continue you may have access to information: Regarding HIV / AIDS; Provided by facilities licensed or operated by the [facility] Office of Mental Health; or Provided by the [facility] Office for People With Developmental Disabilities. If such information is present, then the following [facility] mandated warning applies: This information has been disclosed to you from confidential records which are protected by state law. State law prohibits you from making any further disclosure of this information without the specific written consent of the person to whom it pertains, or as otherwise permitted by law. Any unauthorized further disclosure in violation of state law may result in a fine or half-way sentence or both. A general authorization for the release of medical or other information is NOT sufficient authorization for further disc losure. Allergies and Adverse Reactions Type Description Substance Reaction Status Data Source(s ) Drug allergy CHLORHEXIDINE GLUCONATE CHLORHEXIDINE GLUCONATE [facility] BRANDNAME BACTRIM BACTRIM RASH [facility] Drug allergy CEFPROZIL CEFPROZIL [facility] Family History Family Member Name Family Member Gender Family Member Status Date o f Status Description Data Source(s) Unknown Male Problem MEDENT ([facility]) Unknown Unknown Problem MED[facility] ([facility], ) Encounters Encounter Providers Location Date Indications Data Source(s ) Outpatient Attender: Oscar MORTON [facility] 11/06/2020 09:30:00 AM EST [facility] ([facility]) Outpatient Attender: Sam Francis [id number] 12:00:00 AM EST - 10/21/2020 12:29:12 PM [facility] Outpatient Attender: SONIA SMITH MD Main Office 10/08/2020 09:30:00 AM EST [facility] ([facility] Outpatient Attender: Oscar MORTON [facility] 08/21/2020 10:30:00 AM EST [facility] ([facility]) Outpatient Attender: [facility] 08/04/2020 12:00:00 PM EST [facility] ([facility]) Outpatient Attender: CONOR [id number] [facility] 07/09/2020 10:00:00 AM EDT MED[facility] ([facility]) Outpatient Attender: SONIA SMITH MD Main Office 07/08/2020 10:45:00 AM EDT [facility] ([facility] Outpatient Attender: Dee Dee [facility] 05/22/2020 12:10:00 PM EDT [facility] ([facility]) Outpatient Referrer: IGNACIO STEVENS 12/06/2019 0 5:18:00 AM EST [facility] Imaging Outpatient Attender: Oscar MORTON [facility] 11/13/2019 02:00:00 PM EST MED[facility] ([facility]) Outpatient Attender: MEGAN RAMOS DO [facility] 10/17/2019 10:30:00 AM EST MEDENT ([facility]) Emergency Attender: ARSALAN YANCEY MDConsultant: MEGAN COLLINS DO 10/15/2019 09:09:00 PM EST - 10/15/2019 11:42:00 PM EST [facility] Patient discharged. Outpatient Attender: Dee [facility] 10/11/2019 10:30:00 AM EST [facility] ([facility]) Immunizations Vaccine Date Status Description Data Source(s) New in 2011. IIV4 07/09/2020 10:00:00 AM EDT completed [facility] [facility]) New in 2011. IIV4 07/09/2020 09:28:00 AM EDT completed [facility] ([facility]) Medications Medication Brand Name Start Date Product Form Dose Route Admi nistrative Instructions Pharmacy Instructions Status Indications Reaction Description Data Source(s) Immunization Administration Single Or Combination 07/09/2020 12:00:00 AM EDT completed [facility] ([facility]) Medication administered onsite montelukast 10 MG Oral Tablet [Singulair] Singulair 2019 12:00:00 AM EDT ORAL active [facility] ( [facility]) Tamsulosin hydrochloride 0.4 MG Oral Capsule [Flomax] Flomax 11/13/2019 12:00:00 AM EST ORAL active [facility] ([facility]) Naproxen 500 MG Oral Tablet Naproxen 10/17/2019 12:00:00 AM EST completed [facility] ([facility]) Methylprednisolone 4 MG Oral Tablet [Medrol] Medrol 07/2020 12:00:00 AM EST ORAL active [facility] ( [facility]) Insurance Providers Payer name Policy type / Coverage type Policy ID Covered constitution party ID Covered constitution party's relationship to segovia Policy [place] Plan Information [facility] [id number] 2 [id number] U [id number] Spouse [id number] [facility] [id number] Se lf [id number] [facility] [id number] S [id number] [facility] [id number] SP [id number] [facility] - O/P [id number] 01 [id number] [facility] [id number] 2 [id number] [facility] [id number] O [id number] [facility] Commercial [id number] Family Dependent [id number] [facility] UNAVAILABLE 01 UNAVAILABLE [facility] CO UNAVAILABLE UNAVAILABLE [facility] (2018) Health Maintenance Organization (HMO) [id number] Family Dependent [id number] Problems, Conditions, and Diagnoses Code Display Name Description Problem Type Effective Dates Data Source(s) 604017188 Allergic rhinitis due to house dust mite Allergic rhinitis due to house dust mite Problem 07/08/2020 12:00:00 AM EDT [facility] ([facility]) Note: 3+ reaction to dust mites on intra dermal test completed in 2019. R0602 Shortness of breath Shortness of breath Diagnosis 0 10/15/2019 09:09:[address] [facility] R0789 Other chest pain Other chest pain Diagnosis 10/15/2019 09 :09:[address] [facility] Surgeries/Procedures Procedure Description Date Indications Data Source(s) Audiometry Threshold Evaluation & Speech Recognition 09/21/2020 12:00:00 AM EST [facility] ([facility]) TYMPANOMETRY 09/21/2020 12:00:00 AM EST M EDENT ([facility]) Myringotomy W/ Aspiration/Eustachian Tube Inflate 08/04/2020 12:00:00 AM EST [facility] ([facility]) PERCUTANEOUS TESTS W/ALLERGENIC EXTRACTS 07/08/2020 12 :00:00 AM EDT [facility] ([facility]) INTRACUTANEOUS TESTS W/ALLERGENIC EXTRACTS 07/08/2020 12:00:00 AM EDT [facility] ([facility]) Endoscopy Nasal Diagnostic 10/11/2019 12:00:00 AM EST [facility] ([facility]) Results ID Date Data Source [id number] 11/06/2020 11:32:00 AM EST [facility] ([facility]) Name Value Range Interpretation Code Description Data Chantel rce(s) Supporting Document(s) Inhouse Urine Laboratory test result [facility] ([facility]) ID Date Data Source [id number] 10/22/2020 12:32:31 PM [facility] Name Value Range Interpretation Code Description Data Chantel rce(s) Supporting Document(s) Progress Note [facility] FBRDXt8lQcMMOuWh98/ZZCnrOZOvk1OgEVssVHm0AZhwZYLbM6YuAOP1aX5oDJP7NHcONtSsLtFdMJJr lbm [file] AgICAgICAgICAgICAgICAgICAgICAgICAgICAgICAg ICAgICAgICAgICAgICAgICAgICAgICAgICAgICAgICAgDQogICAgICAgICAgICAgICAgICAgICAgICAg ICAgICAgICAgICAgICAgICAgICAgICAgICAgICAgICAgICAgICAgICAgICAgICAgICAgICAgICAgICAg ICAgICAgICAgICAgICAgDQogICAgICAgICAgICAgIC AgICAgICAgICAgICAgICAgICAgICAgICAgICAgICAgICAgICAgICAgICAgICAgICAgICAgICAgICAgIC AgICAgICAgICAgICAgICAgICAgICAgICAgDQogICAgICAgICAgICAgICAgICAgICAgICAgICAgICAgIC AgICAgICAgICAgICAgICAgICAgICAgICAgICAgICAg ICAgICAgICAgICAgICAgICAgICAgICAgICAgICAgICAgICAgDQogICAgICAgICAgICAgICAgICAgICAg ICAgICAgICAgICAgICAgICAgICAgICAgICAgICAgICAgICAgICAgICAgICAgICAgICAgICAgICAgICAg ICAgICAgICAgICAgICAgICAgDQogICAgICAgICAgIC AgICAgICAgICAgICAgICAgICAgICAgICAgICAgICAgICAgICAgICAgICAgICAgICAgICAgICAgICAgIC AgICAgICAgICAgICAgICAgICAgICAgICAgICAgDQogICAgICAgICAgICAgICAgICAgICAgICAgICAgIC AgICAgICAgICAgICAgICAgICAgICAgICAgICAgICAg ICAgICAgICAgICAgICAgICAgICAgICAgICAgICAgICAgICAgICAgDQogICAgICAgICAgICAgICAgICAg ICAgICAgICAgICAgICAgICAgICAgICAgICAgICAgICAgICAgICAgICAgICAgICAgICAgICAgICAgICAg ICAgICAgICAgICAgICAgICAgICAgDQogICAgICAgIC AgICAgICAgICAgICAgICAgICAgICAgICAgICAgICAgICAgICAgICAgICAgICAgICAgICAgICAgICAgIC AgICAgICAgICAgICAgICAgICAgICAgICAgICAgICAgDQogICAgICAgICAgICAgICAgICAgICAgICAgIC AgICAgICAgICAgICAgICAgICAgICAgICAgICAgICAg AEJzIJTwRICcXNUdHUGjVSGqDHPrZGByUNWdJPGlVKDpCOTzRRIwPIYtXXe9T2zhILXpVHOcZV5pPKc8 Jz8+DNlZIeJhPJU9hzYstC5UBB6mo4VzBNszIJXcw2BsEDd7JA7MMIFhWAaaOI6PEAotuf4PFCZuHRQm hOBHk3qzBnAsQOP9FPXgXjmjYA2BJNNpG9ijcrFgUP RdTGUAZLizBPBZSIndKWITIW6NTxSsP6KdpS37TSRMFb0+QDfwblItUaeBQoT8JXLko8XdRDt2HQ1BJD JuYxcro9HmHckqYJQIIAoqGU1YEJQ9DZD3CXUyKa3HZTQbO367roUoFK3BPe5RTqJbJN0ytu9KHbptNY YjRkyIPse2MSskFJ4TnZBvZNjYak1sulPnwbUXj0Bu agGdiJNGuuxrbzRDMD0iG1bdvZPjOZAVYQIdbWQvEnMpOiFwXfPwUYD1KOCmNQ1iXXspCU2VBOS5FJjq RQVaGKNnB9hDDyWxPZDsYONxnKngFB3STkHiF7NcndVrwHDbQzDoRPOWZt6+XBsdleLcDiiIBoD3IBSz a7HuKBx9OG8OWIZpOXweCO8BBBEpgE7bUQzlOH1OSk DpDORzCRXEBbGyY59wtQAhTJb7Q6VqYuVqNJQtUznsENApSKjgJcWiVBRpQeTmTNzuUO8+ID4+DQogIC 7GFUftjsPzVNGyFw2DOBLiECKrXB3hFKNrXQQnA3D9nJomFIDQVsDyT9akjcahUQ1rKGGlE200fJbqqm CkHPP3DEHoVt9WRYWpHVD9GBWjgJWmIeJjMWKIDXcg IZ8KiJOqPNY9lK9gACypVEWnVCXuE7xIWeNsoHmeJI68oMghscGasIVyVTa+Tn7GYK9gl1VwVKu3eqAw BQafOJW0UKlnOVWfRUImDMJkGWZ8ANR8GXJYLtFsEVDqMNNgMGvpAULeTMBuyk1GUKJuBOYoUwtiLuPc TWMlXCSkGJdwSQEeVWB9VTF6SDXrQXPjTU0COfNcKT GrQEByPJugCISxMGWeps6GAWDmNLFeDlk8IDAgQJSqUGEmQBveFLPdKEFcCBD5DPLkRWUrJJ7JRtJpLG SoNKobEINdDEWjMMUqcf1KGYKmVJYwUlO2VhTwZQNmBMAwZCkjZIBwVTBlVpK1APZiNXKkMO0CDpXiTJ WyLHA6GYGhFGOkGFObmm8UMSZzDSAfHBLgLmOjPSRr AYIeSBzbSZTyJNEcLnQ5YELyTEJkRG7IYbUjJITrUOZ4EJJdNNNeIAIhwa1XIIDmAIJaMgk3NMOoERRn TDAbAYepSBUpDOEnQNIhPEThXDYkLS1HHzQnHVTmCIWbDFMpOZNpGENjjk5BHBRmRBChCXA7ATStDATl UXGlHQciQMAzHWM4DJs7AMAyZYWvKR4MEgVfXRTxBl NjRLDsQRFsIKPweg6OWFBdIERyRUK1QJEmKCCuTKKaJRzgYCHdHMK5KITbBQYoSBFpES1FHiHhZFFoQy U5UEVjJHOvWMNktw3RZDMuUPJyThAhFkUcVDFvNBLjWGbqHGDkAZJ5LYXmMPQxJFCiIH8HJaPjXTKjTr paRhhuJDVwFRMdgy3MCPOiFTUuMFP1CHFzQSCfYQOf HGhpEBWjUAR1DpV0BXMxHDNuNR5DRbGeNUTxFaa4TCEvFHZzMNZhea9PrQSqtXqbhl5YLGdDJb2TvYdp QTR6RNcrRo1tlMFaHBAgMVTXDk3TyhXgEYEuHWGYCIvyKACcKXMlSZElHyMrTQpnPVMjTVExBJIkDNCa JhWmUpX4ULVrIzS5PmW9TqBkUPCcUWE9XcCxEVDuMe X2NrBfAbI0DJc9MbE+FO3hQFa+Gg1Qw9BonoD1kpSbQLzdGYD5SX8GOPALZ1NLFi== ID Date Data Source [id number] 08/21/2020 02:01:00 PM EST [facility] ([facility]) Name Value Range Interpretation Code Description Data Chantel rce(s) Supporting Document(s) Foot Complete Min 3 Views Left Laboratory test result [facility] ([facility]) ID Date Data Source [id number] 11/13/2019 03:39:00 PM EST [facility] ([facility]) Name Value Range Interpretation Code Description Data Chantel rce(s) Supporting Document(s) Inhouse Nitrite neg [facility] ([facility]) Inhouse Leukocytes neg [facility] ([facility]) Inhouse PH 6.0 [facility] ([facility]) Inhouse Protein neg [facility] ([facility]) Inhouse Urobilinogen 0,.2 [facility] ([facility]) Inhouse Specific Paden 1.020 [facility] ([facility] Inhouse Hemoglobin neg [facility] ([facility]) Inhouse Ketones neg [facility] ([facility]) Inhouse Bilirubin neg [facility] Inhouse Glucose neg [facility] ([facility]) ID Date Data Source [id number] 10/17/2019 12:25:00 PM EST [facility] ([facility]) Name Value Range Interpretation Code Description Data Chantel rce(s) Supporting Document(s) Thyroid Stimulating Hormone 1.400 uIU/ML 0.358-3.740 Norm al (applies to non- numeric results) [facility] ([facility]) Free T4 0.91 ng/dL 0.76-1.46 Normal (applies to non-numeric resul ts) [facility] ([facility]) ID Date Data Source [id number] 10/17/2019 08:03:00 [place] [address] RESPIRATORY CARE REPORT ==== ---------NAME------- NUMBER SEX AGE ADMIT DISC. XRAY# F/C ALBERTO Shaw [id number] F 29 10/15/19 10/15/1919751109 SB4 E/R DATE OF : 1990 M/R# [id number] PH#: [phone] TR-03 LOCATION: EMERGENCY DEPT EKG [id number] COMP LETE:10/16/19 09:16 [place] [address] PHYSICIAN: BC CHAIREZ Name Value Range Interpretation Code Description Data Chantel rce(s) Supporting Document(s) ID Date Data Source [id number] 10/16/2019 01:57:[address] [place] [address] PHONE: [phone] FAX: [phone] Name .................. : BALDEV Shaw Acct Number.................. : [id number] ROOM. ................. : TR03 MR Number ................... : [id number] Stay type ............. : E/R Discharge Date......... ... : 10/15/19 Admit Date ......... : 10/15/19 Admit Phys .................... : BC CHAIREZ Date of ....... : 1990 Family Phys ................... : [facility] Phone .................. : [phone] Age ................................ : 29 Film# .................. .:[id number] Sex ................................. : F Unsigned transcriptions are preliminary reports and do not represent a medical or legal document CHEST 2 VIEWS 12172 COMPLETE:10/16/19 00:14 KJE 83561 Reason(s): Chest Pain CHEST X-RAY: FRONTAL AND LATERAL VIEWS FINDINGS: There is no acute consolidation or congestive heart failure. There is increased opacity at the bases bilaterally with overlying soft tissue. There is a probable nipple shadow projecting over the left base. The heart is not enlarged. There is no hilar adenopathy. There are no pleural effusions. The lower spine angles to the right. IMPRESSION: No evidence of significant acute pulmonary disease. Electronically Reviewed and Signed By Kevan Jenkins MD , 10/16/19 13:57, AML Transcribe Initials: PRANAY , Transcribe Date: 10/16/19 08:42, Dictation Date: Copy for: EMERGENCY DEPT via modem Copy for: 710 MED REC DISCHARGED Page 1 of 1 Name Value Range Interpretation Code Description Data Chantel rce(s) Supporting Document(s) ID Date Data Source [id number] 10/15/2019 09:09:00 PM EST [facility] 1 OrderSheet [facility] Emergency Department [address] [place] [address] Phone #: ext- [phone] 10/15/2019 21:06 Patient: MIRIAN RYAN Sex: F : 1990 Age: 29yWEIGHT:78.9 kg (S) HEIGHT:69 inches (S) BMI:25.7ALLERGIES: Ceftil, SeptraCHIEF COMPLAINT: chest pain, SOBDIAGNOSIS: Atypical chest painLAB ORDERSOrder Description Priority Entered Acknowledged InitialedUrinalysis (Clean STAT :10/15/2019 22:19 Manuel Hahn R.N. Physician;Urine Drug Screen STAT 21:10/15/2019 22:19 Arsalan Hahn R.N. Physician;Troponin-T STAT 21:10/15/2019 22:01 Estefani Cruz RN Physician;TSH STAT :10/15/2019 22:01 Estefani Cruz RN Physician;T4 (Thyroxine) STAT 21:10/15/2019 22:01 Estefani Cruz RN Physician;Lactic Acid STAT :10/15/2019 22:01 Estefani Cruz RN Physician;Lipase STAT 21:10/15/2019 22:01 Estefani Cruz RN Physician;BNP STAT 21:10/15/2019 22:01 Estefani Cruz RN Physician;HCG Serum Qual STAT 21:10/15/2019 22:02 Estefani Cruz RN Physician;D-Dimer STAT 21:10/15/2019 22:02 Estefani Cruz RN Physician;CBC w Diff STAT 21:10/15/2019 22:02 Crystal 2 OrderSheet [facility] Emergency Department [address] [place] [address] Phone #: ext- [phone] 10/15/2019 21:06 Patient: MIRIAN RYAN Sex: F : 1990 Age: 29y Arsalan Cruz RN Physician;CMP STAT 21:10/15/2019 22:02 Estefani Cruz RN Physician;CPK STAT :10/15/2019 22:02 Estefani Cruz RN Physician;DIAGNOSTIC STUDY ORDERSOrder Description Priority Entered Acknowledged InitialedChest 2 View STAT 10/15/2019 Ack'd: 22:36 22:48 Estefani(Oxygen?(No)) Anthony Restrepo RN Physician; Lexie Leiva Reason for Study: Chest PainMEDICATION/IV/DRIP/FLUID ORDERSOrder Description Priority Entered Acknowledged InitialedAspirin PO 21:10/15/2019 Cancelled: patient breast feeding MDChewable 81 mg Arsalan Yancey aware 22:01 La Hahn R.N.162 mg (NOW) Physician;GI Cocktail PO 50 23:25 10/15/2019 Ack'd: 23:30 Lexie Pabon R.N.mL with Lidocaine Arsalan Yancey Cancelled: contraindication with donnatalViscous Physician; and 23:39 Cm,Mouth/Throat 10 Lexie LeivamL, Maalox Oral 30mL, Oral10 mLMaalox PO 30 mL 23:39 10/15/2019 Ack'd: 23:39 23:40 Cm Pabon Jennifer McCormick, Lexie Leiva RTom; Verbal order Lexie Leiva per; Arsalan Yancey PhysicianGENERAL ORDERSOrder Description Priority Entered Acknowledged InitialedCardiac Monitor 21:26 10/15/2019 21:34 Jovani(continuous) Asralan Tovar R.N. Physician;EKG 21:10/15/2019 21:34 Arsalan Hahn R.N. Physician; 3 OrderSheet [facility] Emergency Department [address] [place] [address] Phone #: ext- [phone] 10/15/2019 21:06 Patient: MIRIAN RYAN Sex: F : 1990 Age: 29yPulse oximeter 21:26 10/15/2019 21:34 Jovani(Spot Check) Arsalan Tovar R.N. Physician;Saline Lock 21:10/15/2019 21:46 Arsalan Hahn R.N. Physician;[Electronically signed by Lexie Pabon R.N. (23:55 10/15/2019)][Electronically signed by Arsalan Yancey (09:40 10/16/2019)][Electronically locked by Lexie Pabon R.N. (23:55 10/15/2019)] Name Value Range Interpretation Code Description Data Chantel rce(s) Supporting Document(s) ID Date Data Source [id number] 10/15/2019 09:09:00 PM [place] [address] Medication Reconciliation Report [facility] Emergency Department [address] [place] [address] Phone #: ext- [phone] 10/15/2019 21:06 Patient: MIRIAN RYAN Sex: F : 1990 Age: 29yWeight: 78.9 kgHeight/Length: 69 in.BMI: 25.7ALLERGIES: Ceftil, SeptraThe patient's Home Medications are listed below:THE FOLLOWING MEDICATIONS NEED TO BE RECONCILED: Singulair Oral 10 mg, dailyThe source(s) of the original Home Medication information:patientThe following Medications were given to the patient in the Emergency Department:Maalox [PO] PO 50 mL, administered: 10/15/2019 11:40:00 PMThe following Medications were prescribed to the patient:None. Name Value Range Interpretation Code Description Data Chantel rce(s) Supporting Document(s) ID Date Data Source [id number] 10/15/2019 09:09:00 PM [place] [address] Medication Administration Record [facility] Emergency Department [address] [place] [address] Phone #: ext- [phone] 10/15/2019 21:06 Patient: MIRIAN RYAN Sex: F : 1990 Age: 29yWeight: 78.9 kgHeight/Length: 69 inBMI: 25.7ALLERGIES: Ceftil, Septra Date/Time Medication Administered Medication OrderedGiven MAALOX [PO] (CALCIUM CARBONATE Maalox PO 30 mL23:40 10/15/2019 ANTACID)Lexie Pabon R.N. Dose: 50 mL Oral Suspension PO Name Value Range Interpretation Code Description Data Chantel rce(s) Supporting Document(s) ID Date Data Source [id number] 10/15/2019 09:09:00 PM EST [facility] 1 General Instructions [facility] Emergency Department [address] [place] [address] Phone #: ext- [phone] 10/15/2019 21:06 Patient: MIRIAN RYAN Sex: F : 1990 Age: 29yAtypical chest painINSTRUCTIONSAvoid stimulants (such as cigarettes, coffee, cold medicines, sinus medicines, street drugs).Warnings: Further evaluation is necessary.GENERAL WARNINGS: Return or contact your physician immediately if your condition worsens orchanges unex pectedly, if not improving as expected, or if other problems arise.Understanding of the discharge instructions verbalized by patient and family.Follow-up with: Chris Kruger MD, Cardiology, , [address] [place] [address], [facility] Follow up tomorrow if not better. Call for an appointment. Reason for referral: evaluation, treatment andAtypical chest pain - Non-cardiac. Need ECHO / stress test. ADDITIONAL INFORMATIONNoncardiac Chest PainBased on your visit today, the healthcare provider doesn't know what is causing your chest pain. In 2 General Instructions [facility] Emergency Department [address] [place] [address] Phone #: ext- [phone] 10/15/2019 21:06 Patient: MIRIAN RYAN Sex: F : 1990 Age: 29ymost cases, people who come to the emergency department with chest pain don't have a problemwith their heart. Instead, the pain is caused by other conditions. It's important for the healthcare teamto be sure you are not having a life threatening cause for chest pain such as a heart attack, blood clotin the lungs, collapsed lung, ruptured esophagus, or tearing of the aorta. Once these major causeshave been ruled out, you may have further evaluation for non-heart causes of chest pain. These maybe problems with the lungs, muscles, bones, digestive tract, nerves, or mental health.Lung problems Inflammation around the lungs (pleurisy) Collapsed lung (pneumothorax) Fluid around the lungs (pleural effusion) Lung cancer (a rare cause of chest pain)Muscle or bone problems Inflamed cartilage between the ribs (costochondritis) Fibromyalgia Rheumatoid arthritis Chest wall strainDigestive system problems Reflux Stomach ulcer Spasms of the esophagus Gall stones Gallbladder inflammationMental health conditions Panic or anxiety attacks Emotional distressYour condition doesn't seem serious and your pain doesn't appear to be coming from your heart. Butsometimes the signs of a serious problem take more time to appear. Watch for the warning signslisted below. 3 General Instructions [facility] Emergency Department [address] [place] [address] Phone #: ext- [phone] 10/15/2019 21:06 [id number] Sex[facility] F : 1990 Age: 29yHome careFollow these guidelines when caring for yourself at home: Rest today and avoid strenuous activity. Take any prescribed medicine as directed.Follow-up careFollow up with your healthcare provider, or as advised, if you don't start to feel better within 24 hours.When to seek medical adviceCall your healthcare provider right away if any of these occur: A change in the type of pain. Call if it feels different, becomes more serious, lasts longer, or begins to spread into your shoulder, arm, neck, jaw, or back. Shortness of breath You feel more pain when you breathe Cough with dark-colored mucus or blood Weakness, dizziness, or fainting Fever of 100.4F (38C) or higher, or as directed by your healthcare provider Swelling, pain, or redness in one leg [id number] [employer]. [address] [place] [address]. All rights reserved. This information is not intended as asubstitute for professional medical care. Always follow your healthcare professional's instructions. You have been given the following additional information: Chest Pain, Noncardiac(Electronically signed by Arsalan Yancey, Physician 10/16/2019 09:40) Name Value Range Interpretation Code Description Data Chantel rce(s) Supporting Document(s) ID Date Data Source [id number] 10/15/2019 09:09:00 PM EST [facility] 1 Clinical Report - Nurses [facility] Emergency Department [address] [place] [address] Phone #: ext- [phone] 10/15/2019 21:06 Patient: MIRIAN RYAN Sex: F : 1990 Age: 29yTRIAGEArrived by private vehicle. Historian: patient.Acuity: LEVEL 3.Chief Complaint: CHEST PAIN and SHORTNESS OF BREATH.Alert. No acute distress.Onset. (4 days ago).Treatment PARK INTERPRETIVE SPECIALIST:None.SEPSIS SCREEN: Negative (no infection suspected/documented). --21:19 10/15/19 La Hahn R.N.21:16 10/15/19. BP: 119/85. MAP: 96. HR: 86. RR: 16. O2 saturation: 100% on room air. Temp: 98.1 F(oral). Pain level now: 01/09. --21:19 10/15/19 La Hahn R.N.Weight: 78.9 kg stated. Height/Length: 69 inches Per Patient. BMI: 25.7. --21:15 10/15/19 La Hahn R.N.MedicationsSingulair Oral 10 mg, daily. --21:17 10/15/19 La Hahn R.N.AllergiesCeftil.Septra. --21:17 10/15/19 La Hahn R.N.Medication/allergy information source: the patient. --21:19 10/15/19 La Hahn R.N.HistoryPAST MEDICAL HX: Immunizations: up-to-date. Last normal menstrual period was 1 week ago. Deniescurrent . Last oral intake by patient was today 3 hours ago.SOCIAL HX: Never smoker. Occasional alcohol use. No drug use. She was offered HIV testing butdeclined and hepatitis C testing but declined. She has not traveled outside the [place]Infectious disease exposure: No infectious disease exposure. The patient was not exposed to C- diff,MRSA, VRE or CRE.SELF HARM ASSESSMENT: Self harm assessment was performed. The patient answered "no" to thequestion(s) "Have you recently felt down, depressed, or hopeless?", "Do you have thoughts of harming orkilling yourself?", "Do you have a plan for harming or killing yourself?", "Have you recently had thoughtsabout harming or killing others?", "Do you have any dangerous items in your possession?", "Have you 2 Clinical Report - Nurses [facility] Emergency Department [address] [place] [address] Phone #: ext- [phone] 10/15/2019 21:06 Patient: MIRIAN RYAN Sex: F : 1990 Age: 29y noticed less interest or pleasure in doing things?", "Are you here because you tried to hurt yourself?" and "Have you ever tried to hurt yourself before today?". ABUSE ASSESSMENT: No report of abuse. NUTRITIONAL RISK ASSESSMENT: The nutritional risk assessment revealed no deficiencies. FUNCTIONAL ASSESSMENT: Functional assessment: no impairments noted. LEARNING NEEDS ASSESSMENT: The learning needs assessment revealed no barriers. FALL RISK ASSESSMENT: Fall risk assessment completed. No risk factors identified. SKIN INTEGRITY ASSESSMENT: Skin integrity risk assessment completed. No skin integrity risk identified. --21:19 10/15/19 La Hahn R.N.PHYSICAL ASSESSMENTAmbulatory to room.GENERAL / NEURO / PSYCH: Alert. Oriented X 4. Appears in no acute distress. ( intermittentheadaches over last "couple days.").HEENT: Mucous membranes are pink.RESPIRATORY: Respirations not labored. Breath sounds within normal limits.CVS: Cardiac rhythm: normal sinus rhythm. Heart sounds within normal limits. Pulses within normallimits. ( chest pain mid sternal x 4 days.). Capillary refill less than 2 seconds.GI / : Abdomen soft and nontender.EXTREMITIES: No lower extremity edema.SKIN: Skin is warm and dry. Normal skin turgor. Skin is non-tender. --21:22 10/15/19 La Hahn R.N.NURSING PROGRESS NOTESCardiac rhythm: normal sinus rhythm. Monitoring of patient in place. EKG time: (21:17 10/15/2019).Patient gowned. Reassurance given. Call light placed in reach. Bed placed in lowest position. Patientready for evaluation. --21:20 10/15/19 La Hahn RVincent. Patient transported to radiology by wheelchair with rn radiology. --22:45 10/15/19 Estefani Cruz RN Patient returned from radiology by wheelchair with rn radiology. --22:48 10/15/19 Estefani Cruz RN 23:40 10/15/2019 Maalox (Calcium Carbonate Antacid) PO Oral Suspension 50 mL given. Allergies verified and confirmed 5 rights. Information reviewed with patient including reason for taking this medication, signs of allergic reaction and precautions. Verbalizes understanding. --23:40 10/15/19 Lexie Pabon R.N. 3 Clinical Report - Nurses [facility] Emergency Department [address] [place] [address] Phone #: [phone]- [phone] 10/15/2019 21:06 [id number] Sex[facility] F : 1990 Age: 29yDISPOSITION / DISCHARGE 23:42 10/15/19. Departure time: 23:42 10/15/2019. Condition at departure: improved and stable. No learning barriers present. Discharge instructions provided and reviewed with the patient. Reviewed referral to a electromechanical equipment assembler for followup. Visit overview and summary of care (CCDA) provided to patient via paper. Patient verbalized understanding. Written instructions provided in Russian. The patient was discharged by the physician. She was discharged home. She left ambulatory and via private vehicle. Patient driving. --23:42 10/15/19 Lexie Pabon R.N. 23:40 10/15/19. BP: 125/84. MAP: 97. HR: 95. RR: 16. O2 saturation: 100% on room air. Temp: 98.5 F (oral). Pain level now: 11/11. --23:42 10/15/19 Lexie Pabon R.N.Locked/Released at 10/15/2019 23:55 by Lexie Pabon R.N. Name Value Range Interpretation Code Description Data Chantel rce(s) Supporting Document(s) ID Date Data Source [id number] 10/15/2019 09:09:00 PM EST [facility] 1 Clinical Report - Physicians/Mid Levels [facility] Emergency Department [address] [place] [address] Phone #: ext- [phone] 10/15/2019 21:06 Patient: MIRIAN RYAN Sex: F : 1990 Age: 29y Time Seen: 21:08 10/15/2019. Arrived- By private vehicle. Historian- patient and spouse. Disposition decision: 23:25 10/15/2019.HISTORY OF PRESENT ILLNESS Chief Complaint: CHEST PAIN. SHORTNESS OF BREATH Mild. It is described as pressure, tightness, aching, sharp, "pain" and well localized and it is described as located in the central chest area. No radiation. This started 4 days ago and is still present. It was abrupt in onset and has been waxing/waning. Onset during light activity. At its maximum, severity described as 4 / 10. When seen in the E.D., it was almost gone and severity described as 2 / 10. Modifying factors- worsened by exertion, movement, walking, cough and deep breaths. No nausea, vomiting or diaphoresis. She has had mild difficulty breathing at rest. (Pt. is recently post- and breast-feeding). Similar sym ptoms previously. (for 2 days). Recent medical care: Not recently seen/assessed.REVIEW OF SYSTEMSNo fever, chills, cough, pedal edema or calf pain. No missed periods, abnormal bleeding, vaginaldischarge, fainting episodes or headache. No sore throat, blurred vision, black stools, difficulty withurination or skin rash. No enlarged lymph nodes, joint pain or bloody stools.PAST HISTORYPast history not negative. See nurses notes. Other disease. Recently post- and breast-feeding. Surgeries: .SOCIAL HISTORYNever smoker. Occasional alcohol use. No drug use. No recent travel.ADDITIONAL NOTESThe nursing notes have been reviewed with agreement regarding the chief complaint, HPI, ROS, PMH andpatient medications and allergies.PHYSICAL EXAMVital Signs: 10/15/2019 21:16 BP: 119/85. MAP: 96. HR: 8 6. RR: 16. O2 saturation: 100% on room air.Temp: 98.1 F. Pain level now: 4/10. Have been reviewed and appear to be correct. Blood pressurenormal. Heart rate normal. Respiratory rate normal. Temperature normal. Oxygen saturation normal.Appearance: Alert. Oriented X3. Anxious. Appears to be in pain. Patient in mild distress.Eyes: Pupils equal, round and reactive to light. Eyes inspection not normal. Pale conjunctivae. 2 Clinical Report - Physicians/Mid Levels [facility] Emergency Department [address] [place] [address] Phone #: ext- [phone] 10/15/2019 21:06 Patient: MIRIAN RYAN Sex: F : 1990 Age: 29y ENT: Nose normal. Pharynx normal. Neck: Normal inspection. Neck supple. CVS: Normal heart rate and rhythm. Heart sounds normal. Pulses normal. Respiratory: No respiratory distress. Chest pain reproducible with palpation of the costal cartilage, costochondral junction and sternum. Painless inspiration. Breath sounds normal. Abdomen: Soft and nontender. Bowel sounds normal. No organomegaly. No mass. Back: Normal external inspection. Skin: Skin warm and dry. Normal skin color. No rash. Normal skin turgor. Extremities: Extremities exhibit normal ROM. No lower extremity edema. Neuro: Oriented X 3. No motor deficit. No sensory deficit.LABS, X-RAYS, AND EKGEKG: Normal EKG.Chest X-ray: Normal Chest X-Ray.Laboratory Tests: Laboratory tests have been ordered, with results reviewed and considered in themedical decision making process. Urinalysis: (LAURENT: 10/15/2019 22:15) ( MsgRcvd 10/15/2019 22:52) Final results Test Result Flag Units (Reference) URINALYSIS URINALYSIS SOURCE R COLOR yellow (NORMAL: Yello CLARITY clear (NORMAL: Clear SPEC GRAVITY 1.010 (1.001 - 1.030 pH 7 (5 - 9) GLUCOSE NORM (NORMAL: Negat BILIRUBIN NEG (NORMAL: Negat KETONE NEG (NORMAL: Negat PROTEIN NEG (NORMAL: Negat NITRITE NEG (NORMAL: Negat BLOOD NEG (NORMAL: Negat LEUK EST NEG (NORMAL: Negat UROBILINOGEN NOR (less than 1.0 MICROSCOPIC Not Indicate Drug Screen-Urine: (LAURENT: 10/15/2019 22:15) ( MsgRcvd 10/15/2019 22:58) Final results Test Result Flag Units (Reference) DRUG SCREEN URINE URINE DRUG SCREEN AMPHETAMINES NEGATIVE (NORMAL: NEGAT BARBITURATES NEGATIVE (NORMAL: NEGAT BENZO NEGATIVE (NORMAL: NEGAT COCAINE NEGATIVE (NORMAL: NEGAT THC NEGATIVE (NORMAL: NEGAT OPIATES NEGATIVE (NORMAL: NEGA T PCP NEGATIVE (NORMAL: NEGAT \\BLDo\\URINE DRUG SCREEN INTERPRETATION\\BLDx\\ THE CUTOFFF LEVELS FOR DETECTION ARE FOLLOWS: AMPHETAMINES 1000 ng/ml BARBITUARATES 200 ng/ml BENZODIAZEPINES 100 ng/ml THC 50 ng/ml PHENCYCLIDINE 25 ng/ml OPIATES 300 ng/ml COCAINE 300 ng/ml ALL POSITIVES ARE CONSIDERED PRESUMPTIVE POSITIVE CONFIRMATION WILL BE PERFORMED AT PHYSICIAN REQUEST. Troponin-T: (LAURENT: 10/15/2019 21:56) ( TngRcvd 10/15/2019 22:48) Final results 3 Clinical Report - Physicians/Mid Levels [facility] Emergency Department [address] [place] [address] Phone #: ext- [phone] 10/15/2019 21:06 Patient: MIRIAN RYAN Sex: F : 1990 Age: 29y Test Result Flag Units (Reference) TROPONIN T <0.01 NG/ML (0.00 - 0.10) TROPONIN T0.1 ng/ml Recommended as the clinical threshold value forTroponin T.TSH: (LAURENT: 10/15/2019 21:56) ( TngRcvd 10/15/2019 23:01) Final results Test Result Flag Units (Reference) TSH 6.33 H uIU/mL (0.47 - 5.01)T4 (Thyroxine): (LAURENT: 10/15/2019 21:56) ( [facility] 10/15/2019 22:59) Final results Test Result Flag Units (Reference) T4 TOTAL 6.7 UG/DL (4.5 - 12.5)Lactic Acid: (LAURENT: 10/15/2019 21:56) ( [facility] [place]/15/[place] 22:40) Final results Test Result Flag Units (Reference) LACTIC ACID 1.5 MMOL/L (0.2 - 2.2)Lipase: (LAURENT: 10/15/2019 21:56) ( [facility] 10/15/2019 22:47) Final results Test Result Flag Units (Reference) LIPASE 30 U/L (13 - 60)BNP: (LAURENT: 10/15/2019 21:56) ( [facility] 10/15/2019 22:59) Final results Test Result Flag Units (Reference) BNP 8 PG/ML (0 - 125)Beta-HCG, Qual Serum: (LAURENT: 10/15/2019 21:56) ( [facility] 10/15/2019 22:41) Final results Test Result Flag Units (Reference) HCG SERUM QUAL NEGATIVE (NORMAL: NEGAT HCG SERUM QL REENTER NEGATIVE (NORMAL: NEGAT { KIT LOT # [id number] ){ KIT EXP [id number] ){ PROCEDURAL CONTROL VALID)D- Dimer: (LAURENT: 10/15/2019 21:56) ( [facility] 10/15/2019 22:35) Final results Test Result Flag Units (Reference) D-DIMER QUANT 0.30 ug/mL (0.27 - 0.50)CBC w Diff: (LAURENT: 10/15/2019 21:56) ( MsgRcvd 10/15/2019 22:28) Final results Test Result Flag Units (Reference) CBC W/AUTOMATED DIFF COMPLETE BLOOD COUNT WBC 7.2 10/uL (4.2 - 11.0) RBC 4.19 L 10/uL (4.20 - 5.40) HEMOGLOBIN 12.6 g/dL (12.0 - 16.0) HEMATOCRIT 37.3 % (37.0 - 47.0) MCV 89.0 fL (81.0 - 101) MCH 30.1 pg (27.0 - 34.0) MCHC 33.8 g/dL (31.0 - 36.0) RDW 12.6 % (11.5 - 14.5) PLATELETS 220 10/uL (150 - 450) MPV 8.6 fL (7.4 - 10.4) NEUT 41.1 % (37.0 - 80.0) LYMPH 46.4 H % (25.0 - 40.0) MONO 8.1 H % (3.0 - 8.0) EOS 3.5 % (0.0 - 7.0) BASO 0.6 % (0.0 - 2.5) %IG 0.3 H % (0.0 - 0.0) %NRBC 0.0 % (0.0 - 0.0) #NEUT 2.95 10/uL (2.00 - 6.90) #LYMPH 3.33 10/uL (0.60 - 3.40) 4 Clinical Report - Physicians/Mid Levels [facility] Emergency Department [address] [place] [address] Phone #: ext- [phone] 10/15/2019 21:06 Patient: MIRIAN RYAN Sex: F : 1990 Age: 29y #MONO 0.58 10/uL (0.00 - 0.90) #EOS 0.25 10/uL (0.00 - 0.70) #BASO 0.04 10/uL (0.00 - 0.20) #IG 0.02 10/uL (0.00 - 0.10) #NRBC 0.00 10/uL (0.00 - 0.00) MANUAL DIFF NOT INDICATED RBC MORPH NOT INDICATEDCMP: (LAURENT: 10/15/2019 21:56) ( MsgRcvd 10/15/2019 22:47) Final results Test Result Flag Units (Reference) COMPREHENSIVE METABOLIC PANEL COMPREHENSIVE METABOLIC PANEL SODIUM 141 mEq/L (134 - 153) POTASSIUM 3.8 mEq/L (3.6 - 5.0) CHLORIDE 103 mEq/L (98 - 107) CO2 28 MEQ/L (22 - 30) GLUCOSE 73 MG/DL (65 - 110) BUN 14 MG/DL (7 - 21) CREATININE 0.8 MG/DL (0.7 - 1.5) BUN/CREAT 18 (8 - 27) TOTAL PROTEIN 7.2 G/DL (6.3 - 8.2) ALBUMIN 4.6 G/DL (3.9 - 5.0) GLOBULIN 2.6 GM/DL (2.4 - 3.2) A/G RATIO 1.8 (0.8 - 2.0) CALCIUM 9.7 MG/DL (8.4 - 10.2) TOTAL BILI 0.7 MG/DL (0.2 - 1.3) ALKALINE PHOS 59 U/L (38 - 126) SGOT/AST 13 U/L (5 - 40) SGPT/ALT 8 U/L (7 - 56) ANION GAP 10.0 mmol/L (8.0 - 16.0) AGE 29 yrs NON-AA GFR >60 mL/min AFR AMER GFR >60 mL/min Male GFR Interprentation 20-49 yrs >60 mL/min Qrdnhj75-06 yrs >56 mL/min Normal 60-69 yrs >49 mL/min Normal 70-79yrs>42 mL/min Normal 80 and above >35 mL/min Normal Female GFRInterpretation 20-39 yrs >60 mL/min Normal 40-49 yrs >58 mL/minNormal 50-59 yrs >51 mL/min Normal 60-69 yrs >45 mL/min Diannh72-28 yrs >39 mL/min Normal 80 and above >32 mL/min NormalCPK: (LAURENT: 10/15/2019 21:56) ( MsgRcvd 10/15/2019 22:47) Final results Test Result Flag Units (Reference) CPK 69 U/L (30 - 170)EKG: (LAURENT: 10/15/2019 21:26) ( MsgRcvd 10/16/2019 09:18) In ProgressChest 2 View: (LAURENT: 10/15/2019 21:26) ( MsgRcvd 10/16/2019 08:45) In ProgressCHEST 2 VIEWSReason(s): Chest PainTRANSPORTATION: WC IV? O2? Oxygen?(No) Room: ED: HCG Pending Exam [place] [address] [place] [address] PHONE: [phone] FAX: [phone] Name .................. : BALDEV Shaw Acct Number.................. : [id number] ROOM. ................. : TR-03 MR Number ................... : [id number] Stay type ............. : E/R Discharge Date......... ... : 10/15/19 Admit Date ......... : 10/15/19 Admit Phys .................... : BC CHAIREZ Date of ....... : 1990 Family Phys ................... : TANESHA Ochoa Clinical Report - Physicians/Mid Levels [facility] Emergency Department [address] [place] [address] Phone #: ext- [phone] 10/15/2019 21:06 Patient: MIRIAN RYAN Sex: F : 1990 Age: 29y Phone .................. : [phone] Age ................................ : 29 Film# .................. .:[id number] Sex ................................. : F Unsigned transcriptions are preliminary reports and do not represent a medical or legal document CHEST 2 VIEWS [id number] COMPLETE:10/16/19 00:14 KJE [id number] Reason(s): Chest Pain CHEST X-RAY: FRONTAL AND LATERAL VIEWS FINDINGS: There is no acute consolidation or congestive heart failure. There is increased opacity at the bases bilaterally with overlying soft tissue. There is a probable nipple shadow projecting over the left base. The heart is not enlarged. There is no hilar adenopathy. There are no pleural effusions. The lower spine angles to the right. IMPRESSION: No evidence of significant acute pulmonary disease. Electronically Reviewed and Signed By DCTNAMDesmond , SIGNDATE, AML Transcribe Initials: PRANAY , Transcribe Date: 10/16/19 08:42, Dictation Date: <<REPDIST>> Page 1 of 1.PROGRESS AND PROCEDURESCourse of Care: 23:Oct 15 2019. Patient is stable. Symptoms better. 23:Oct 15 2019. 23:Oct 15 2019. CXR is clear and EKG is NSR. Labs unremarkable and pain was only a 2/10. Will discharge home. Critical care performed (120 minutes). Time is exclusive of separately billable procedures. Time includes: direct patient care, patient reassessment, interpretation of data (laboratory data, pulse oximetry and chest xrays), review of patient's medical records and documentation of patient care- see progress notes. Procedures included in critical care time: peripheral IV placement and phlebotomy- see progress notes. Disposition: Discharged home in g ood and improved condition (23:23 Oct 15 2019). Condition: good.CLINICAL IMPRESSION Atypical chest pain 6 Clinical Report - Physicians/Mid Levels [facility] Emergency Department [address] [place] [address] Phone #: ext- [phone] 10/15/2019 21:06 Patient: MIRIAN RYAN Sex: F : 1990 Age: 29yINSTRUCTIONS Avoid stimulants (such as cigarettes, coffee, cold medicines, sinus medicines, street drugs). Warnings: Further evaluation is necessary. GENERAL WARNINGS: Return or contact your physician immediately if your condition worsens or changes unexpectedly, if not improving as expected, or if other problems arise. Understanding of the discharge instructions verbalized by patient and family. Follow-up with: Chris Kruger MD, Cardiology, , [address] [place] [address], [facility] Follow up tomorrow if not better. Call for an appointment. Reason for referral: evaluation, treatment and Atypical chest pain - Non-cardiac. Need ECHO / stress test.(Electronically signed by Arsalan Yancey, Physician 10/16/2019 09:40) Name Value Range Interpretation Code Description Data Chantel rce(s) Supporting Document(s) ID Date Data Source [id number] 10/15/2019 10:15:00 PM EST [facility] ([facility]) Name Value Range Interpretation Code Description Data Chantel rce(s) Supporting Document(s) Drug Screen Urine (SEE NOTE) [facility] ([facility]) SOURCE: Clean Catch Barbiturates NEGATIVE [facility] ([facility] Me dicine [facility]) SOURCE: Clean Catch Amphetamines NEGATIVE [facility] ([facility] Me dicine [facility]) SOURCE: Clean Catch Benzo NEGATIVE [facility] ([facility]) SOURCE: Clean Catch Cocaine NEGATIVE [facility] ([facility]) SOURCE: Clean Catch THC NEGATIVE [facility] ([facility]) SOURCE: Clean Catch Opiates NEGATIVE [facility] ([facility]) SOURCE: Clean Catch PCP NEGATIVE [facility] ([facility]) SOURCE: Clean Catch ID Date Data Source [id number] 10/15/2019 10:15:00 PM EST [facility] ([facility] Medicine [facility]) Name Value Range Interpretation Code Description Data Chantel rce(s) Supporting Document(s) Color yellow [facility] ([facility]) SOURCE: Clean Catch Urinalysis (SEE NOTE) [facility] ([facility] Med icine [facility]) SOURCE: Clean Catch Source R [facility] ([facility] Medic ine [facility]) SOURCE: Clean Catch Spec Paden 1.010 1.001-1.030 [facility] ([facility]) SOURCE: Clean Catch Clarity clear [facility] ([facility] Medic ine [facility]) SOURCE: Clean Catch Bilirubin NEG [facility] ([facility] Medic ine [facility]) SOURCE: Clean Catch Glucose NORM [facility] ([facility] Medic ine [facility]) SOURCE: Clean Catch pH 7 5-9 [facility] ([facility] Medic ine [facility]) SOURCE: Clean Catch Nitrite NEG [facility] ([facility] Medic ine [facility]) SOURCE: Clean Catch Protein NEG [facility] ([facility] Medic ine [facility]) SOURCE: Clean Catch Ketone NEG [facility] ([facility]) SOURCE: Clean Catch Leuk Est NEG [facility] ([facility]) SOURCE: Clean Catch Blood NEG [facility] ([facility] Medic ine [facility]) SOURCE: Clean Catch Urobilinogen NOR [facility] ([facility] dicine [facility]) SOURCE: Clean Catch Microscopic Not Indicate [facility] ([facility] Medicine [facility]) SOURCE: Clean Catch ID Date Data Source [id number] 10/15/2019 10:57:00 PM EST [facility] Name Value Range Interpretation Code Description Data Chantel rce(s) Supporting Document(s) DRUG SCREEN URINE [facility] URINE DRUG SCREEN Amphetamine [Presence] in Urine by Screen method NEGATIVE NORMAL: N EGATIVE [facility] BARBITURATES NEGATIVE NORMAL: NEGATIVE [facility] BENZO NEGATIVE NORMAL: NEGATIVE [facility] COCAINE NEGATIVE NORMAL: NEGATIVE [facility] Tetrahydrocannabinol [Presence] in Urine NEGATIVE NORMAL: NEGATIVE [facility] OPIATES NEGATIVE NORMAL: NEGATIVE [facility] Phencyclidine [Presence] in Urine by Screen method NEGATIVE NOR MAL: NEGATIVE [facility] \\BLDo\\URINE DRUG SCR EEN INTERPRETATION\\BLDx\\ THE CUTOFFF LEVELS FOR DETECTION ARE FOLLOWS: AMPHETAMINES 1000 ng/ml BARBITUARATES 200 ng/ml BENZODIAZEPINES 100 ng/ml THC 50 ng/ml PHENCYCLIDINE 25 ng/ml OPIATES 300 ng/ml COCAINE 300 ng/ml ALL POSITIVES ARE CONSIDERED PRESUMPTIVE POSITIVE CONFIRMATION WILL BE PERFORMED AT PHYSICIAN REQUEST. ID Date Data Source [id number] 10/15/2019 10:52:00 PM EST [facility] Name Value Range Interpretation Code Description Data Chantel rce(s) Supporting Document(s) [facility] R [facility] al COLOR yellow NORMAL: Yellow [facility] ospital CLARITY clear NORMAL: Clear [facility] Specific gravity of Urine by Test strip 1.010 1.001 - 1.030 [facility] pH 7 5 - 9 [facility] al Glucose [Mass/volume] in Urine by Test strip NORM NORMAL: Negat [facility] Bilirubin.total [Presence] in Urine by Test strip NEG NORMAL: Negative [facility] Ketones [Presence] in Urine by Test strip NEG NORMAL: Negative [facility] Protein [Mass/volume] in Urine by Test strip NEG NORMAL: Negat [facility] Nitrite [Presence] in Urine by Test strip NEG NORMAL: Negative [facility] BLOOD NEG NORMAL: Negative [facility] Leukocyte esterase [Presence] in Urine by Test strip NEG CIRILO L: Negative [facility] Urobilinogen [Mass/volume] in Urine by Test strip NOR less chase n 1.0 mg/dL [facility] MICROSCOPIC Not Indicate [facility] ID Date Data Source [id number] 10/15/2019 09:56:00 PM EST [facility] ([facility]) Name Value Range Interpretation Code Description Data Chantel rce(s) Supporting Document(s) Creatine kinase [Enzymatic activity/volume] in Serum or Plasma 69 U /L 30-170 [facility] ([facility]) Troponin T.cardiac [Mass/volume] in Serum or Plasma <0.01 ng/mL 0.00- 0.10 [facility] ([facility]) TROPONIN T 0.1 ng/ml Recommended as the clinical th reshold value for Troponin T. Thyroxine (T4) [Mass/volume] in Serum or Plasma 6.7 ug/dL 4.5-12.5 [facility] ([facility]) Natriuretic peptide.B prohormone N-Terminal [Mass/volu me] in Serum or Plasma 8 pg/mL 0-125 [facility] ([facility]) Thyrotropin [Units/volume] in Serum or Plasma 6.33 uIU/mL 0. 47-5.01 Above high normal [facility] ([facility]) ID Date Data Source [id number] 10/15/2019 09:56:00 PM EST [facility] ([facility]) Name Value Range Interpretation Code Description Data Chantel rce(s) Supporting Document(s) Comprehensive Metabo (SEE NOTE) [facility] NT ([facility]) COMPREHENSIVE METABOLIC PANEL Sodium 141 meq/L 134-153 [facility] ([facility]) Potassium 3.8 meq/L 3.6-5.0 [facility] ([facility]) Co2 28 meq/L 22-30 [facility] ([facility]) Glucose 73 mg/dL 65-110 [facility] ([facility]) Chloride 103 meq/L 98-107 [facility] ([facility]) Creatinine 0.8 mg/dL 0.7-1.5 [facility] ([facility]) BUN/Creat 18 8-27 [facility] ([facility]) BUN 14 mg/dL 7-21 [facility] ([facility]) Total Protein 7.2 g/dL 6.3-8.2 [facility] ([facility]) Albumin 4.6 g/dL 3.9-5.0 [facility] ([facility] Medic [facility]) Globulin 2.6 GM/DL 2.4-3.2 [facility] ([facility]) Calcium 9.7 mg/dL 8.4-10.2 [facility] ([facility]) A/G Ratio 1.8 0.8-2.0 [facility] ([facility]) Total Bili 0.7 mg/dL 0.2-1.3 [facility] ([facility]) Sgot/Ast 13 U/L 5-40 [facility] ([facility]) Alkaline Phos 59 U/L 38-126 [facility] ([facility]) SGPT/Alt 8 U/L 7-56 [facility] ([facility]) Non-Aa GFR >60 mL/min [facility] ([facility]) Anion Gap 10.0 mmol/L 8.0-16.0 [facility] ([facility]) Age 29 yrs [facility] ([facility]) Afr Amer GFR >60 mL/min [facility] ([facility]) Male GFR Interprentation 20-49 yrs >60 mL/min Normal 50-59 yrs >56 mL/min Normal 60-69 yrs >49 mL/min Normal 70-79yrs >42 mL/min Normal 80 and above >35 mL/min Normal Female GFR Interpretation 20-39 yrs >60 mL/min Normal 40-49 yrs >58 mL/min Normal 50-59 yrs >51 mL/min Normal 60-69 yrs >45 mL/min Normal 70-79 yrs >39 mL/min Normal 80 and above >32 mL/min Normal ID Date Data Source [id number] 10/15/2019 09:56:00 PM EST [facility] ([facility]) Name Value Range Interpretation Code Description Data Chantel rce(s) Supporting Document(s) Lipase [Enzymatic activity/volume] in Serum or Plasma 30 U/L 13-6 0 [facility] ([facility]) ID Date Data Source [id number] 10/15/2019 09:56:00 PM EST [facility] ([facility]) Name Value Range Interpretation Code Description Data Chantel rce(s) Supporting Document(s) HCG Serum QL Reenter NEGATIVE [facility] ([facility]) { KIT LOT # [id number] ) { KIT EXP DATE 03-21-21 ) { PROCEDURAL CONTROL VALID ) HCG Serum Qual NEGATIVE [facility] ([facility]) ID Date Data Source [id number] 10/15/2019 09:56:00 PM EST [facility] ([facility]) Name Value Range Interpretation Code Description Data Chantel rce(s) Supporting Document(s) Fibrin D-dimer [Presence] in Platelet poor plasma 0.30 ug/mL 0.27-0.5 0 [facility] ([facility]) Lactate [Mass/volume] in Serum or Plasma 1.5 mmol/L 0.2-2.2 [facility] ([facility]) ID Date Data Source [id number] 10/15/2019 09:56:00 PM EST [facility] ([facility]) Name Value Range Interpretation Code Description Data Chantel rce(s) Supporting Document(s) RBC 4.19 10^6/uL 4.20-5.40 Below low normal [facility] ([facility]) CBC W/Automated Diff (SEE NOTE) [facility] ([facility]) COMPLETE BLOOD COUNT WBC 7.2 10^3/uL 4.2-11.0 [facility] ([facility]) Hemoglobin 12.6 g/dL 12.0-16.0 [facility] ([facility]) MCV 89.0 fL 81.0-101 [facility] ([facility] Medic [facility]) Hematocrit 37.3 % 37.0-47.0 [facility] ([facility] Medi cine [facility]) MCHC 33.8 g/dL 31.0-36.0 [facility] [facility]) RDW 12.6 % 11.5-14.5 MEDENT ([facility]) MCH 30.1 pg 27.0-34.0 MEDENT ([facility]) Platelets 220 10^3/uL 150-450 MEDENT ([facility] Med [facility]) Neut 41.1 % 37.0-80.0 MEDENT ([facility] Medic ine [facility]) MPV 8.6 fL 7.4-10.4 [facility] ([facility]) Lymph 46.4 % 25.0-40.0 Above high normal MEDENT ([facility] Medicine [facility]) Eos 3.5 % 0.0-7.0 [facility] ([facility]) Sullivan 8.1 % 3.0-8.0 Above high normal MEDENT (Family [facility]) %NRBC 0.0 % 0.0-0.0 [facility] ([facility]) Baso 0.6 % 0.0-2.5 [facility] ([facility]) %Ig 0.3 % 0.0-0.0 Above high normal MEDENT ([facility] Medicine [facility]) #Lymph 3.33 10^3/uL 0.60-3.40 MEDENT (Family Me dicine [facility]) #Sullivan 0.58 10^3/uL 0.00-0.90 MED[facility] ([facility]) #Neut 2.95 10^3/uL 2.00-6.90 MEDENT (Family Me dicine [facility]) #Ig 0.02 10^3/uL 0.00-0.10 MEDENT ([facility] dicine [facility]) #Baso 0.04 10^3/uL 0.00-0.20 MEDENT ([facility] dicine [facility]) #Eos 0.25 10^3/uL 0.00-0.70 MEDENT ([facility] dicine [facility]) RBC Morph NOT INDICATED MEDENT ([facility] M edicine [facility]) Manual Diff NOT INDICATED MED[facility] ([facility] Medicine [facility]) #NRBC 0.00 10^3/uL 0.00-0.00 MED[facility] ([facility] Me dicine [facility]) ID Date Data Source [id number] 10/15/2019 11:01:[address] [facility] Name Value Range Interpretation Code Description Data Chantel rce(s) Supporting Document(s) Thyrotropin [Units/volume] in Serum or Plasma by Detec tion limit <= 0.05 mIU/L 6.33 uIU/mL 0.47 - 5.01 H [facility] ID Date Data Source [id number] 10/15/2019 10:59:[address] [facility] Name Value Range Interpretation Code Description Data Chantel rce(s) Supporting Document(s) BNP 8 PG/ML 0 - 125 [facility] al ID Date Data Source [id number] 10/15/2019 10:59:[address] [facility] Name Value Range Interpretation Code Description Data Chantel rce(s) Supporting Document(s) Thyroxine (T4) [Mass/volume] in Serum or Plasma 6.7 UG/DL 4.5 - 12.5 [facility] ID Date Data Source [id number] 10/15/2019 10:48:[address] [facility] Name Value Range Interpretation Code Description Data Chantel rce(s) Supporting Document(s) TROPONIN T <0.01 NG/ML 0.00 - 0.10 [facility] ospital TROPONIN T0.1 ng/ml Recommended as the c linical threshold value forTroponin T. ID Date Data Source [id number] 10/15/2019 10:47:[address] [facility] Name Value Range Interpretation Code Description Data Chantel rce(s) Supporting Document(s) Creatine kinase [Enzymatic activity/volume] in Serum or Plasma 6 9 U/L 30 - 170 [facility] ID Date Data Source [id number] 10/15/2019 10:47:[address] [facility] Name Value Range Interpretation Code Description Data Chantel rce(s) Supporting Document(s) COMPREHENSIVE METABOLIC PANEL [facility] COMPREHENSIVE METABOLIC PANEL Sodium [Moles/volume] in Serum or Plasma 141 mEq/L 134 - 153 [facility] Potassium [Moles/volume] in Serum or Plasma 3.8 mEq/L 3.6 - 5.0 [facility] Chloride [Moles/volume] in Serum or Plasma 103 mEq/L 98 - 107 [facility] Carbon dioxide, total [Moles/volume] in Serum or Plasma 28 MEQ/L 22 - 30 [facility] Glucose [Mass/volume] in Serum or Plasma 73 MG/DL 65 - 110 [facility] BUN 14 MG[facility]DL 7 - [facility] Creatinine [Mass/volume] in Serum or Plasma 0.8 MG/DL 0.7 - 1.5 [facility] BUN/CREAT 18 8 - 27 [facility] al Protein [Mass/volume] in Serum or Plasma 7.2 G/DL 6.3 - 8.2 [facility] Albumin [Mass/volume] in Serum or Plasma 4.6 G/DL 3.9 - 5.0 [facility] Globulin [Mass/volume] in Serum by calculation 2.6 GM/DL 2.4 - 3.2 [facility] A/G RATIO 1.8 0.8 - 2.0 [facility] Calcium [Mass/volume] in Serum or Plasma 9.7 MG/DL 8.4 - 10.2 [facility] Bilirubin.total [Mass/volume] in Serum or Plasma 0.7 MG/DL 0.2 - 1.3 [facility] Alkaline phosphatase [Enzymatic activity/volume] in Serum or Plasma 59 U/L 38 - 126 [facility] Aspartate aminotransferase [Enzymatic activity/volume] in Serum or Plasma 13 U/L 5 - 40 [facility] Alanine aminotransferase [Enzymatic activity/volume] in Seru m or Plasma 8 U/L 7 - 56 [facility] Anion gap 3 in Serum or Plasma 10.0 mmol/L 8.0 - 16.0 [facility] AGE 29 yrs [facility] al NON-AA GFR >60 mL/min [facility] ital AFR AMER GFR >60 mL/min [facility] sp[facility] Male GFR In terprentation 20-49 yrs >60 mL/min Normal 50-59 yrs >56 mL/min Normal 60-69 yrs >49 mL/min Normal 70-79yrs >42 mL/min Normal 80 and above >35 mL/min Normal Female GFR Interpretation 20-39 yrs >60 mL/min Normal 40-49 yrs >58 mL/min Normal 50-59 yrs >51 mL/min Normal 60-69 yrs >45 mL/min Normal 70-79 yrs >39 mL/min Normal 80 and above >32 mL/min Normal ID Date Data Source [id number] 10/15/2019 10:47:00 PM EST [facility] Name Value Range Interpretation Code Description Data Chantel rce(s) Supporting Document(s) Lipase [Enzymatic activity/volume] in Serum or Plasma 30 U/L 13 - 60 [facility] ID Date Data Source [id number] 10/15/2019 10:41:[address] [facility] Name Value Range Interpretation Code Description Data Chantel rce(s) Supporting Document(s) HCG SERUM QUAL NEGATIVE NORMAL: NEGATIVE [facility] HCG SERUM QL REENTER NEGATIVE NORMAL: NEGATIVE [facility] { KIT LOT # [id number] ){ KIT EXP DATE 03-21-21 ){ PROCEDURAL CONTROL VALID ) ID Date Data Source [id number] 10/15/2019 10:40:[address] [facility] Name Value Range Interpretation Code Description Data Chantel rce(s) Supporting Document(s) Lactate [Moles/volume] in Serum or Plasma 1.5 MMOL/L 0.2 - 2.2 [facility] ID Date Data Source [id number] 10/15/2019 10:35:[address] [facility] Name Value Range Interpretation Code Description Data Chantel rce(s) Supporting Document(s) Fibrin D-dimer FEU [Mass/volume] in Platelet poor plasma 0.30 ug /mL 0.27 - 0.50 [facility] ID Date Data Source [id number] 10/15/2019 10:28:[address] [facility] Name Value Range Interpretation Code Description Data Chantel rce(s) Supporting Document(s) CBC W/AUTOMATED DIFF [facility] COMPLETE BLOOD COUNT Leukocytes [#/volume] in Blood by Automated count 7.2 10^3/uL 4.2 - 1 1.0 [facility] Erythrocytes [#/volume] in Blood by Automated count 4.19 10^6/uL 4. 20 - 5.40 L [facility] Hemoglobin [Mass/volume] in Blood 12.6 g/dL 12.0 - 16.0 [facility] Hematocrit [Volume Fraction] of Blood by Automated count 37.3 % 3 7.0 - 47.0 [facility] Erythrocyte mean corpuscular volume [Entitic volume] by Auto mated count 89.0 fL 81.0 - 101 [facility] Erythrocyte mean corpuscular hemoglobin [Entitic mass] by Automated count 30.1 pg 27.0 - 34.0 [facility] Erythrocyte mean corpuscular hemoglobin concentration [Mass/volume] by Automated count 33.8 g/dL 31.0 - 36.0 [facility] Erythrocyte distribution width [Ratio] by Automated count 12.6 % 11.5 - 14.5 [facility] Platelets [#/volume] in Blood by Automated count 220 10^3/uL 150 - 45 0 [facility] Platelet mean volume [Entitic volume] in Blood by Automated count 8.6 fL 7.4 - 10.4 [facility] Neutrophils/100 leukocytes in Blood by Automated count 41.1 % 37. 0 - 80.0 [facility] Lymphocytes/100 leukocytes in Blood by Manual count 46.4 % 25.0 - 40.0 H [facility] Monocytes/100 leukocytes in Blood by Automated count 8.1 % 3.0 - 8.0 H [facility] Eosinophils/100 leukocytes in Blood by Automated count 3.5 % 0.0 - 7.0 [facility] Basophils/100 leukocytes in Blood by Automated count 0.6 % 0.0 - 2.5 [facility] %IG 0.3 % 0.0 - 0.0 H [facility] %NRBC 0.0 % 0.0 - 0.0 [facility] al Neutrophils [#/volume] in Blood by Automated count 2.95 10^3/uL 2.00 - 6.90 [facility] Lymphocytes [#/volume] in Blood by Automated count 3.33 10^3/uL 0.60 - 3.40 [facility] Monocytes [#/volume] in Blood by Automated count 0.58 10^3/uL 0.00 - 0.90 [facility] Eosinophils [#/volume] in Blood by Automated count 0.25 10^3/uL 0.00 - 0.70 [facility] Basophils [#/volume] in Blood by Automated count 0.04 10^3/uL 0.00 - 0.20 [facility] #IG 0.02 10^3/uL 0.00 - 0.10 [facility] #NRBC 0.00 10^3/uL 0.00 - 0.00 [facility] MANUAL DIFF NOT INDICATED [facility] RBC MORPH NOT INDICATED [facility] Procedure Social History Code Duration Value Status Description Data Source(s ) Smoking 10/08/2020 12:00:00 AM EST Patient has never smoked co mpleted Patient has never smoked [facility] ([facility] ) Smoking 10/11/2019 12:00:00 AM EST Patient has never smoked co mpleted Patient has never smoked [facility] ([facility]) Vital Signs ID Date Data Source UNK Name Value Range Interpretation Code Description Data Source(s) [place] body weight 140 [lb_av] 140 [lb_av] MEDEN T ([facility]) Oxygen saturation in Arterial blood by Pulse oximetry 96 % 96 % MED[facility] ([facility]) Body temperature 98.1 [degF] 98.1 [degF] MED[facility] ([facility]) Respiratory rate 18 /min 18 /min MED[facility] ( [facility]) Heart rate 91 /min 91 /min MED[facility] ([facility]) Body mass index (BMI) [Ratio] 27.0 kg/m2 27.0 k g/m2 MED[facility] ([facility]) Body weight 181.50 [lb_av] 181.50 [lb_av] MEDEN T ([facility]) Body height 68.8 [in_i] 68.8 [in_i] MED[facility] ([facility]) 5'8.80" Diastolic blood pressure 68 mm[Hg] 68 mm[Hg] MEDENT ([facility]) Systolic blood pressure 116 mm[Hg] 116 mm[Hg] M EDENT ([facility]) Body mass index (BMI) [Ratio] 26.5 kg/m2 26.5 k g/m2 [facility] ([facility]) Diastolic blood pressure 74 mm[Hg] 74 mm[Hg] [facility] ([facility]) Systolic blood pressure 119 mm[Hg] 119 mm[Hg] M EDENT ([facility]) Respiratory rate 18 /min 18 /min [facility] ( [facility]) Heart rate 102 /min 102 /min [facility]) Body height 69.5 [in_i] 69.5 [in_i] [facility]) 5'9.50" Body weight 182.12 [lb_av] 182.12 [lb_av] MEDEN T ([facility]) [place] body weight 140 [lb_av] 140 [lb_av] MEDEN T ([facility]) Oxygen saturation in Arterial blood by Pulse oximetry 98 % 98 % MEDENT ([facility]) Body temperature 98.3 [degF] 98.3 [degF] MEDENT ([facility]) Respiratory rate 18 /min 18 /min MED[facility] ( [facility]) Heart rate 87 /min 87 /min MED[facility] ([facility]) Body mass index (BMI) [Ratio] 27.0 kg/m2 27.0 k g/m2 MED[facility] ([facility]) Body weight 182.12 [lb_av] 182.12 [lb_av] MEDEN T ([facility]) Body height 68.8 [in_i] 68.8 [in_i] MEDENT ([facility]) 5'8.80" Diastolic blood pressure 74 mm[Hg] 74 mm[Hg] MEDENT ([facility]) Systolic blood pressure 116 mm[Hg] 116 mm[Hg] M EDENT ([facility]) Body mass index (BMI) [Ratio] 26.3 kg/m2 26.3 k g/m2 MED[facility] ([facility]) Body weight 178.00 [lb_av] 178.00 [lb_av] MEDEN T ([facility]) Body height 69 [in_i] 69 [in_i] [facility] ([facility]) 5'9" Body mass index (BMI) [Ratio] 26.4 kg/m2 26.4 k g/m2 [facility] ([facility]) Diastolic blood pressure 77 mm[Hg] 77 mm[Hg] [facility] ([facility]) Systolic blood pressure 108 mm[Hg] 108 mm[Hg] M EDENT ([facility]) Respiratory rate 18 /min 18 /min MED[facility] ( [facility]) Heart rate 92 /min 92 /min [facility] ([facility] Body height 69.5 [in_i] 69.5 [in_i] [facility]) 5'9.50" Body weight 181.12 [lb_av] 181.12 [lb_av] MEDEN T ([facility]) Body temperature 99.4 [degF] 99.4 [degF] MEDENT ([facility]) [place] body weight 140 [lb_av] 140 [lb_av] MEDEN T ([facility]) Oxygen saturation in Arterial blood by Pulse oximetry 95 % 95 % MEDENT ([facility]) Body temperature 98.3 [degF] 98.3 [degF] MEDENT ([facility]) Respiratory rate 20 /min 20 /min MEDENT ( [facility]) Heart rate 95 /min 95 /min MED[facility] ([facility]) Body mass index (BMI) [Ratio] 25.7 kg/m2 25.7 k g/m2 MEDENT ([facility]) Body weight 173.25 [lb_av] 173.25 [lb_av] MEDEN T ([facility]) Body height 68.8 [in_i] 68.8 [in_i] MEDENT ([facility]) 5'8.80" Diastolic blood pressure 74 mm[Hg] 74 mm[Hg] MEDENT ([facility]) Systolic blood pressure 114 mm[Hg] 114 mm[Hg] M EDENT ([facility]) Oxygen saturation in Arterial blood by Pulse oximetry 99 % 99 % MEDENT ([facility]) Body temperature 98.5 [degF] 98.5 [degF] MEDENT ([facility]) Respiratory rate 18 /min 18 /min MEDENT ( [facility]) Heart rate 91 /min 91 /min MED[facility] ([facility]) Body mass index (BMI) [Ratio] 25.8 kg/m2 25.8 k g/m2 MEDENT ([facility]) Body weight 174.00 [lb_av] 174.00 [lb_av] MEDEN T ([facility]) Body height 68.8 [in_i] 68.8 [in_i] MED[facility] ([facility]) 5'8.80" Diastolic blood pressure 74 mm[Hg] 74 mm[Hg] MEDENT ([facility]) Systolic blood pressure 116 mm[Hg] 116 mm[Hg] M EDENT ([facility]) Heart rate 101 /min 101 /min [facility] ([facility]) Diastolic blood pressure 91 mm[Hg] 91 mm[Hg] MEDENT ([facility]) Systolic blood pressure 142 mm[Hg] 142 mm[Hg] M EDENT ([facility]) Body mass index (BMI) [Ratio] 25.8 kg/m2 25.8 k g/m2 [facility] ([facility]) Body weight 175.00 [lb_av] 175.00 [lb_av] MEDEN T ([facility]) Body height 69 [in_i] 69 [in_i] [facility] ([facility]) 5'9" ID Date Data Source [id number] 10/22/2020 12:32:31 PM [facility] Name Value Range Interpretation Code Description Data Source(s) WEIGHT RECORDED 176 lb 176 lb [facility] Body height Measured 69 in 69 in [facility]
[2020-11-23 10:16] LABS: BASO % 0.3 % (0.0-1.0); EOS # 0.1 10^3/uL (0.0-0.5); EOS % 1.6 % (0.0-3.0); HEMATOCRIT 38.9 % (36.0-47.0); LYMPH # 1.8 10^3/uL (1.5-5.0); LYMPH % 29.3 % (24.0-44.0); MEAN CORPUSCULAR HGB CONC 33.4 g/dl (32.0-36.5); MEAN CORPUSCULAR VOLUME 89.6 fl (80.0-96.0); MONO # 0.4 10^3/uL (0.0-0.8); MONO % 6.3 % (2.0-8.0); NEUTROPHILS # 3.8 10^3/uL (1.5-8.5); NEUTROPHILS % 62.2 % (36.0-66.0); PLATELET COUNT, AUTOMATED 225 10^3/uL (150-450); RED BLOOD COUNT 4.34 10^6/uL (4.00-5.40); WHITE BLOOD COUNT 6.1 10^3/uL (4.0-10.0)
[2020-11-23 10:19] LABS: APPEARANCE, URINE CLEAR (CLEAR); BACTERIA, URINE AUTO NEGATIVE (NEGATIVE); BILIRUBIN, URINE AUTO NEGATIVE (NEGATIVE); BLOOD, URINE BLOOD 2+ (NEGATIVE); COLOR, URINE STRAW (YELLOW); GLUCOSE, URINE (UA) AUTO NEGATIVE (NEGATIVE); KETONE, URINE AUTO NEGATIVE (NEGATIVE); LEUKOCYTE ESTERASE, URINE AUTO NEGATIVE (NEGATIVE); NITRITE, URINE AUTO NEGATIVE (NEGATIVE); PROTEIN, URINE AUTO NEGATIVE (NEGATIVE); RBC, URINE AUTO 0 /HPF (0-3); SPECIFIC GRAVITY URINE AUTO 1.005 (1.002-1.035); SQUAMOUS EPITHELIAL CELL UR AU 0 /HPF (0-6); UROBILINOGEN, URINE AUTO 0.2 mg/dL (0.0-2.0); WBC, URINE AUTO 0 /HPF (0-3)
--- NOTE | 2020-11-23 10:38 | REP ---
INDICATION: VAGINAL BLEEDING. COMPARISON: None. TECHNIQUE: Transabdominal and transvaginal scanning are performed. FINDINGS: Scanning demonstrates a gestational sac seen within the uterine endometrium containing a yolk sac and embryonic pole. The pole measures 4.3 mm which would correspond with a 6 week 1 day gestational age estimate. No definite cardiac motion could be seen. Doppler evaluation of the embryonic pole demonstrates pulsatile motion of the embryonic pole, at the same rate as the maternal cardiac rate which was 85 beats per minute. No extra uterine abnormality is observed. The right ovary measures 2.5 x 1.5 x 1.5 cm. Left ovary measures 2.4 x 1.5 x 1.4 cm. IMPRESSION: There is an intrauterine gestational sac containing a yolk sac and embryonic pole. Six week 1 day size by crown-rump length, expected KEVIN July 19, 2021. However, viability cannot be confirmed. No definite heart rate was visible on transvaginal scanning of the embryonic pole. Consider sonographic follow-up. <Electronically signed by Igor Mora > 11/23/20 1036
--- OUTSIDE RECORDS SUMMARY | 2020-11-23 10:46 | CCD ---
Author Author [facility] Organization [facility] Address Unknown Phone Unavailable Care Team Providers Care Sous Chef Kitchen Manager Name Role Phone SONIA SMITH MD Unavailable Unavailable SONIA SMITH MD Unavailable Unavailable SONIA SMITH MD Unavailable Unavailable SONIA SMITH MD Unavailable Unavailable SONIA SMITH MD Unavailable Unavailable SONIA SMITH MD Unavailable Unavailable SONIA SMITH MD Unavailable Unavailable SONAI SMITH MD Unavailable Unavailable SONIA SMITH MD [...] Unavailable Unavailable SONIA SMITH MD Unavailable Unavailable OSNIA SMITH MD Unavailable Unavailable SONIA SMITH MD Unavailable Unavailable SONIA SMITH MD Unavailable Unavailable SONIA SMITH MD Unavailable Unavailable SONIA SMITH MD Unavailable Unavailable SONIA SMITH MD Unavailable Unavailable SONIA SMITH MD Unavailable Unavailable SONIA SMITH MD Unavailable Unavailable CHRSONIA AMAYA MD Unavailable Unavailable CHRSONIA AMAYA MD Unavailable Unavailable CHRSNOIA AMAYA MD Unavailable Unavailable CHROSTSONIA MANNING MD [...] CFNP Unavailable Unavailable Leonela Francis Unavailable Unavailable Loenela Francis Unavailable Unavailable Leonela Francis Unavailable Unavailable Leonela Francis Unavailable Unavailable Leonela Francis Unavailable Unavailable Leonela Francis Unavailable Unavailable Leonela Francis Unavailable Unavailable Leonela Francis Unavailable Unavailable Leonela Francis Unavailable Unavailable Tito, D Sam Unavailable Unavailable Tito, D Sam Unavailable Unavailable Tito, D Sam Unavailable Unavailable Tito, D Sam Unavailable Unavailable Tito, D Sam Unavailable Unavailable Tito, D Sam Unavailable Unavailable Tito, D Asm Unavailable Unavailable Tito, D Sam Unavailable Unavailable Tito, D Sam Unavailable Unavailable Tito, D Sam Unavailable Unavailable Tito, D Sam Unavailable Unavailable Tito, D Sam Unavailable Unavailable Tito, D Asm Unavailable Unavailable Tito, D Sam Unavailable Unavailable [...] Unavailable Unavailable CHELSEY-JANELLE, MEGAN DO Unavailable Unavailable CHELESY-JANELLE, MEGAN DO Unavailable Unavailable CHELSEY-JANELLE, MEGAN DO [...] is protected by Article 27-F of the [facility] Public Health law. If you continue you may have access to information: Regarding HIV / AIDS; Provided by facilities licensed or operated by the [facility] Office of Mental Health; or Provided by the [facility] Office for People With Developmental Disabilities. If such information is present, then the following [facility] mandated warning applies: This information has been [...] law may result in a fine or alf sentence or both. A general authorization for the release of medical or other information is NOT sufficient authorization for further disc losure. Allergies and Adverse Reactions Type Description Substance Reaction Status Data Source(s ) Drug allergy CHLORHEXIDINE GLUCONATE CHLORHEXIDINE GLUCONATE [facility] BRANDNAME BACTRIM BACTRIM RASH [facility] Drug allergy CEFPROZIL CEFPROZIL [facility] Family History Family Member Name Family Member Gender Family Member Status Date o f Status Description Data Source(s) Unknown Male Problem MED[facility] ([facility]) Unknown Unknown Problem MEDENT ([facility], ) Encounters Encounter Providers Location Date Indications Data Source(s ) Outpatient Attender: Oscar MORTON [facility] 11/06/2020 09:30:00 AM EST MEDENT ([facility]) Outpatient Attender: Sam Francis [id number] 12:00:00 AM EST - 10/21/2020 12:29:12 PM [facility] Outpatient Attender: SONIA SMITH MD Main Office 10/08/2020 09:30:00 AM EST [facility] ([facility] Outpatient Attender: Oscar MORTON [facility] 08/21/2020 10:30:00 AM EST MEDENT ([facility]) Outpatient Attender: [facility] 08/04/2020 12:00:00 PM EST [facility] ([facility]) Outpatient Attender: CONOR RUBIN_806 [facility] 07/09/2020 10:00:00 AM EDT MEDENT ([facility]) Outpatient Attender: SONIA SMITH MD Main Office 07/08/2020 10:45:00 AM EDT [facility] ([facility] Outpatient Attender: Dee Dee [facility] 05/22/2020 12:10:00 PM EDT [facility] ([facility]) Outpatient Referrer: IGNACIO STEVENS 12/06/2019 0 5:18:00 AM EST [facility] Radiology Imaging Outpatient Attender: Oscar MORTON [facility] 11/13/2019 02:00:00 PM EST MEDENT ([facility]) Outpatient Attender: MEGAN RAMOS DO [facility] 10/17/2019 10:30:00 AM EST MEDENT ([facility]) Emergency Attender: ARSALAN YANCEY MDConsultant: MEGAN COLLINS DO 10/15/2019 09:09:00 PM EST - 10/15/2019 11:42:00 PM EST [facility] Patient discharged. Outpatient Attender: Dee Dee [facility] 10/11/2019 10:30:00 AM EST [facility] ([facility]) Immunizations Vaccine Date Status Description Data Source(s) New in 2011. IIV4 07/09/2020 10:00:00 AM EDT completed MEDENT ([facility]) New in 2011. IIV4 07/09/2020 09:28:00 AM EDT completed MEDENT ([facility]) Medications Medication Brand Name Start Date Product Form Dose Route Admi nistrative Instructions Pharmacy Instructions Status Indications Reaction Description Data Source(s) Immunization Administration Single Or Combination 07/09/2020 12:00:00 AM EDT completed MEDENT ([facility]) Medication administered onsite montelukast 10 MG Oral Tablet [Singulair] Singulair 2019 12:00:00 AM EDT ORAL active MED[facility] ( [facility]) Tamsulosin hydrochloride 0.4 MG Oral Capsule [Flomax] Flomax 11/13/2019 12:00:00 AM EST ORAL active MEDENT ([facility]) Naproxen 500 MG Oral Tablet Naproxen 10/17/2019 12:00:00 AM EST completed [facility] ([facility]) Methylprednisolone 4 MG Oral Tablet [Medrol] Medrol 07/2020 12:00:00 AM EST ORAL active MED[facility] ( [facility]) Insurance Providers Payer name Policy type / Coverage type Policy ID Covered republican ID Covered republican's relationship to segovia Policy [place] Plan Information [facility] [id number] 2 [id number] U [id number] Spouse [id number] [facility] U [id number] Se lf [id number] [facility] O [id number] S [id number] [facility] [place] [id number] SP [id number] [facility] - O/P [id number] 01 [id number] [facility] [id number] 2 [id number] [facility] [id number] O [id number] [facility] Commercial [id number] Family Dependent [id number] [facility] - PHYSICIAN [place] UNAVAILABLE 01 UNAVAILABLE [facility] CO UNAVAILABLE UNAVAILABLE [facility] (2018) Health Maintenance Organization (HMO) [id number] Family Dependent [id number] Problems, Conditions, and Diagnoses Code Display Name Description Problem Type Effective Dates Data Source(s) [id number] Allergic rhinitis due to house dust mite Allergic rhinitis due to house dust mite Problem 07/08/2020 12:00:00 AM EDT [facility] ([facility]) Note: 3+ reaction to dust mites on intra dermal test completed in 2019. R0602 Shortness of breath Shortness of breath Diagnosis 0 10/15/2019 09:09:00 PM [facility] R0789 Other chest pain Other chest pain Diagnosis 10/15/2019 09 :09:00 PM [facility] Surgeries/Procedures Procedure Description Date Indications Data Source(s) Audiometry Threshold Evaluation & Speech Recognition 09/21/2020 12:00:00 AM EST [facility] ([facility]) TYMPANOMETRY 09/21/2020 12:00:00 AM EST M EDENT ([facility]) Myringotomy W/ Aspiration/Eustachian Tube Inflate 08/04/2020 12:00:00 AM EST [facility] ([facility]) PERCUTANEOUS TESTS W/ALLERGENIC EXTRACTS 07/08/2020 12 :00:00 AM EDT [facility] ([facility]) INTRACUTANEOUS TESTS W/ALLERGENIC EXTRACTS 07/08/2020 12:00:00 AM EDT [facility] ([facility]) Endoscopy Nasal Diagnostic 10/11/2019 12:00:00 AM EST [facility] ([facility]) Results ID Date Data Source [id number] 11/06/2020 11:32:00 AM EST MED[facility] ([facility]) Name Value Range Interpretation Code Description Data Chantel rce(s) Supporting Document(s) Inhouse Urine Laboratory test result MEDENT ([facility]) ID Date Data Source [id number] 10/22/2020 12:32:31 PM [facility] Name Value Range Interpretation Code Description Data Chantel rce(s) Supporting Document(s) Progress Note [facility] WWYMNg5vIyHVEtZi82/VIOrgPYYpa0VmOLqpFPf7WCzdECKkJ4TxZIC8uI2tKKV6DUdGNpKgCtWwUSRm lbm [file] AgICAgICAgICAgICAgICAgICAgICAgICAgICAgICAg ICAgICAgICAgICAgICAgICAgICAgICAgICAgICAgICAgDQogICAgICAgICAgICAgICAgICAgICAgICAg ICAgICAgICAgICAgICAgICAgICAgICAgICAgICAgICAgICAgICAgICAgICAgICAgICAgICAgICAgICAg ICAgICAgICAgICAgICAgDQogICAgICAgICAgICAgIC AgICAgICAgICAgICAgICAgICAgICAgICAgICAgICAgICAgICAgICAgICAgICAgICAgICAgICAgICAgIC AgICAgICAgICAgICAgICAgICAgICAgICAgDQogICAgICAgICAgICAgICAgICAgICAgICAgICAgICAgIC AgICAgICAgICAgICAgICAgICAgICAgICAgICAgICAg ICAgICAgICAgICAgICAgICAgICAgICAgICAgICAgICAgICAgDQogICAgICAgICAgICAgICAgICAgICAg ICAgICAgICAgICAgICAgICAgICAgICAgICAgICAgICAgICAgICAgICAgICAgICAgICAgICAgICAgICAg ICAgICAgICAgICAgICAgICAgDQogICAgICAgICAgIC AgICAgICAgICAgICAgICAgICAgICAgICAgICAgICAgICAgICAgICAgICAgICAgICAgICAgICAgICAgIC AgICAgICAgICAgICAgICAgICAgICAgICAgICAgDQogICAgICAgICAgICAgICAgICAgICAgICAgICAgIC AgICAgICAgICAgICAgICAgICAgICAgICAgICAgICAg ICAgICAgICAgICAgICAgICAgICAgICAgICAgICAgICAgICAgICAgDQogICAgICAgICAgICAgICAgICAg ICAgICAgICAgICAgICAgICAgICAgICAgICAgICAgICAgICAgICAgICAgICAgICAgICAgICAgICAgICAg ICAgICAgICAgICAgICAgICAgICAgDQogICAgICAgIC AgICAgICAgICAgICAgICAgICAgICAgICAgICAgICAgICAgICAgICAgICAgICAgICAgICAgICAgICAgIC AgICAgICAgICAgICAgICAgICAgICAgICAgICAgICAgDQogICAgICAgICAgICAgICAgICAgICAgICAgIC AgICAgICAgICAgICAgICAgICAgICAgICAgICAgICAg QAHlMQCkYTSgQFTpRVAvPTZaFVSlQBMxONAxUEDfVDAjPKWuJFVhBJOxDMi3J7toOIJuYMIcQW4xBBd5 Jz8+MOaEUpKkXNF0cnOazJ7XIU6nf5CuJYdfEXYpn0GvKQe0WN0QQDBdMAvpDI1YHAvucp2LQAFzKZIa aZVOi9riIjVaNXO0FPVsKnuhHL6EIAVjS6clpiOuZH StWDNVFGsbJEFMCCekFMXGEN7NQeClF2EqgZ98IVDJLg4+TNltwmByChqKFvG8TFLrb7LoGYr6UV4LCG BcVvicd4DqEbfzJNWHVAriQM0IPUJ7PCU7FSAlMn1HMDQsJ133izSvKH6VQo4QOdUbLX6lcf4PUogqGJ TnXgtDArp5UMeoAG6LzJMvBNzDtr6oryNksmMXl8Ag tsElmZNTzcifxzITLJ1gP7vbxYCeETJHIWSmvWMfLoUuVyGgOtUqCAO3CHGmGH8hAOoiCF8JURO7XZgr TNFvRQJtN9qLPeCpRUBiZQOurNfyPO7ZRzCiI5RfxjNzuYZvJzQyUYWLMx0+RGxconCpKajQJtT5OINy u2HfMDl2NC8LPWZnKJqsYG5NLZYvdV5uUAdpPK5UFm VgCLTeHZCHNhPfE47xuRJuUQu8V3DuLvViGSCaYlyiZMClOYusIoZoGBGbVuLiHLlcQC5+ID4+DQogIC 7JVUjozuCuZNOoTm9KUXNgAJWeJN4tGIVrEEIhB1K0uGxjSWXMIeZmO2blqpsgST3pUFLxN431uQcvll HvOUC5PFJpTq1FUQJyYOY1IMLnfHMhDaKbCCJFNLlf DQ9VkXFgMDT8hX6sXLwgBLNcUIXwH1pYHmJhcNhrVD00tYfplmJnwPAnPTj+He9OPX3au3EaPTn8ewDc JCssPSX8TKuxIWLaAUKpMGJiBKL0ACK4EQGMApMyEYKrEPBsDQgeRENcAGWldx3NENLrZTIhZnasHyOr TTKaDKUyIQgoXOSjCUI4CBG8WVGuYUEuRF7GYoCsOO LuNOUpMMonAGQbUNKakh8TVNDrOKYaUpu9HZDwFDJfACCjIKgkKOPsSMCuARN5WFAcEXRdKJ2CDgMnYX LtHEgdVNYoBTVeKPThyl5QMMPsXVTiSfS5TnTiIFIdKPWxIKorGQZgWWEzEpG5OLTxCNXjSI3PNjUtNF GzAQY2PUObJOOgYPBuze8WTBSrMRIqVICrBqXrEUYo MRXsWXpsJDNxQUPmCrV0YHZiRASbGV1IYuYbYBFhSSU9REWgDLEyKEIput4TUAXbQOUbWap1VIAtSRZg UBQmQUdpVIKeGKBmRHNgNUMzCKLgKY4BDcOxAQPwXNKeAYXcINAwXCDdsn4EBMPrDPDeUUE3FEWeBLHr NRCyUWnzUBLkCHS3NOj4EZGhWXIoRN6UXvLfXVRcNl PkFESfPIApEAHczd9YGEBgKSHbVMP4NDSiXZYzPFPdWOzeUFEyWLX8HPPzIUMfYBYrJX5LGzTnEOQiLr O9NHFvWRQzHCVyaw2DRDCxOSDrRbWfPlOmTNCxGSHpWTuiYUAnPVD0JEXyJFUtENGzHA7DPuGcLOJyYs icJjcxVOFeZDMnoz7AYRAtGTUtBRV1ERToWHWhDBFh YPhfGLCkGSP2SdH8OSQbFVCcLW8XQmTrUODpIfz4DYEnOQHpYDXphg5UjMSvnQhjoj9NGQcQPi9ExUop LVZ0SPguMa2qqHLkXWBmYRGIRw7RbaOoXJCsTIRECXvjJVZvWDWbTEMtIrQmNYpuCKJpZSTwHOBjBRBq MlWgZsK8ZQGuCpQ1RjH3HnSxJCUoWKX5QrOzZMOlXv E5MjUlRhM7BXp6ZzQ+GT3pHVp+Lv1Zp6FbodG1xxJkYWvpNPK1XO5RQRESI9AUFi== ID Date Data Source [id number] 08/21/2020 02:01:00 PM EST MEDENT ([facility]) Name Value Range Interpretation Code Description Data Chantel rce(s) Supporting Document(s) Foot Complete Min 3 Views Left Laboratory test result MEDENT ([facility]) ID Date Data Source [id number] 11/13/2019 03:39:00 PM EST MED[facility] ([facility]) Name Value Range Interpretation Code Description Data Chantel rce(s) Supporting Document(s) Inhouse Nitrite neg MEDENT ([facility]) Inhouse Leukocytes neg MEDENT ([facility]) Inhouse PH 6.0 MED[facility] ([facility]) Inhouse Protein neg MEDENT ([facility]) Inhouse Urobilinogen 0,.2 MEDENT ([facility]) Inhouse Specific Howard 1.020 MED[facility] ([facility]) Inhouse Hemoglobin neg [facility] ([facility]) Inhouse Ketones neg MED[facility] ([facility]) Inhouse Bilirubin neg [facility] Inhouse Glucose neg MED[facility] ([facility]) ID Date Data Source [id number] 10/17/2019 12:25:00 PM EST MED[facility] ([facility] Name Value Range Interpretation Code Description Data Chantel rce(s) Supporting Document(s) Thyroid Stimulating Hormone 1.400 uIU/ML 0.358-3.740 Norm al (applies to non- numeric results) MEDENT ([facility]) Free T4 0.91 ng/dL 0.76-1.46 Normal (applies to non-numeric resul ts) MEDENT ([facility]) ID Date Data Source [id number] 10/17/2019 08:03:00 [place] [address] RESPIRATORY CARE REPORT ==== ---------NAME------- NUMBER SEX AGE ADMIT DISC. XRAY# F/C ALBERTO Shaw [id number] F 29 10/15/19 10/15/1919751109 SB4 E/R DATE OF : 1990 M/R# [id number] PH#: [phone] TR-03 LOCATION: EMERGENCY DEPT EKG [id number] COMP LETE:10/16/19 09:16 [place] [address] PHYSICIAN: BC CHAIREZ Name Value Range Interpretation Code Description Data Chantel rce(s) Supporting Document(s) ID Date Data Source [id number] 10/16/2019 01:57:[address] [place] [address] PHONE: [phone] FAX: [phone] Name .................. : BALDEV Shaw Acct Number.................. : [id number] ROOM. ................. : TR03 MR Number ................... : [id number] Stay type ............. : E/R Discharge Date......... ... : 10/15/19 Admit Date ......... : 10/15/19 Admit Phys .................... : BC CHAIREZ Date of ....... : 1990 Family Phys ................... : [facility] Phone .................. : [phone] Age ................................ : 29 Film# .................. .:[id number] Sex ................................. : F Unsigned transcriptions are preliminary reports and do not represent a medical or legal document CHEST 2 VIEWS 45402 COMPLETE:10/16/19 00:14 KJE 13540 Reason(s): Chest Pain CHEST X-RAY: FRONTAL AND [...] rce(s) Supporting Document(s) ID Date Data Source [id number] 10/15/2019 09:09:00 PM EST [facility] 1 OrderSheet [facility] Emergency Department [address] [place] [address] Phone #: ext- [phone] 10/15/2019 21:06 Patient: [...] Diff STAT 21:10/15/2019 22:02 Crystal 2 OrderSheet [facility] Emergency Department [address] [place] [address] Phone #: ext- [phone] 10/15/2019 21:06 Patient: [...] 23:30 Lexie Pabon R.N.mL with Lidocaine Arsalan Ynacey Cancelled: contraindication with donnatalViscous Physician; and 23:39 Cm,Mouth/Throat 10 Lexie LeivamL, Maalox Oral 30mL, Oral10 mLMaalox PO 30 mL 23:39 10/15/2019 Ack'd: 23:39 23:40 Cm Pabon Jennifer McCormick, Lexie Leiva RTom; Verbal order Lexie Leiva per; Arsalan Yancey PhysicianGENERAL ORDERSOrder Description Priority Entered Acknowledged InitialedCardiac Monitor 21:26 10/15/2019 21:34 Jovani(continuous) Arsalan Tovar R.N. Physician;EKG 21:10/15/2019 21:34 Arsalan Hahn R.N. Physician; 3 OrderSheet [facility] Emergency Department [address] [place] [address] Phone #: ext- [phone] 10/15/2019 21:06 Patient: [...] rce(s) Supporting Document(s) ID Date Data Source [id number] 10/15/2019 09:09:00 PM [place] [address] Medication Reconciliation Report [facility] Emergency Department [address] [place] [address] Phone #: ext- [phone] 10/15/2019 21:06 Patient: [...] rce(s) Supporting Document(s) ID Date Data Source [id number] 10/15/2019 09:09:00 PM [place] [address] Medication Administration Record [facility] Emergency Department [address] [place] [address] Phone #: ext- [phone] 10/15/2019 21:06 Patient: MIRIAN RYAN Sex: F : 1990 Age: 29yWeight: 78.9 kgHeight/Length: 69 inBMI: 25.7ALLERGIES: Ceftil, Septra Date/Time Medication Administered Medication OrderedGiven MAALOX [PO] (CALCIUM CARBONATE Maalox PO 30 mL23:40 10/15/2019 ANTACID)Lexie Pabon R.N. Dose: 50 mL Oral Suspension PO Name Value Range Interpretation Code Description Data Chantel rce(s) Supporting Document(s) ID Date Data Source [id number] 10/15/2019 09:09:00 PM EST [facility] 1 General Instructions [facility] Emergency Department [address] [place] [address] Phone #: ext- [phone] 10/15/2019 21:06 Patient: [...] family.Follow-up with: Chris Kruger MD, Cardiology, , [address] [place] [address], [facility] Follow up tomorrow if not better. Call for an appointment. Reason for referral: evaluation, treatment andAtypical chest pain - Non-cardiac. Need ECHO / stress test. ADDITIONAL INFORMATIONNoncardiac Chest PainBased on your visit today, the healthcare provider doesn't know what is causing your chest pain. In 2 General Instructions [facility] Emergency Department [address] [place] [address] Phone #: ext- [phone] 10/15/2019 21:06 Patient: [...] the warning signslisted below. 3 General Instructions [facility] Emergency Department [address] [place] [address] Phone #: ext- [phone] 10/15/2019 21:06 [id number] Sex[facility] F : 1990 Age: 29yHome careFollow [...] Swelling, pain, or redness in one leg [phone] [employer]. [address] [place] [address]. All rights reserved. This information is not intended as asubstitute for professional medical care. Always follow your healthcare professional's instructions. You have been given the following additional information: Chest Pain, Noncardiac(Electronically signed by Arsalan Yancey, Physician 10/16/2019 09:40) Name Value Range Interpretation Code Description Data Chantel rce(s) Supporting Document(s) ID Date Data Source [id number] 10/15/2019 09:09:00 PM EST [facility] 1 Clinical Report - Nurses [facility] Emergency Department [address] [place] [address] Phone #: ext- [phone] 10/15/2019 21:06 Patient: MIRIAN RYAN Sex: F : 1990 Age: 29yTRIAGEArrived by private vehicle. Historian: patient.Acuity: LEVEL 3.Chief Complaint: CHEST PAIN and SHORTNESS OF BREATH.Alert. No acute distress.Onset. 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 --21:19 10/15/19 [...] "Have you 2 Clinical Report - Nurses [facility] Emergency Department [address] [place] [address] Phone #: ext- [phone] 10/15/2019 21:06 Patient: [...] Patient transported to radiology by wheelchair with emanations analysis technician. --22:45 10/15/19 Estefani Cruz RN Patient returned from radiology by wheelchair with emanations analysis technician. --22:48 10/15/19 Estefani Cruz RN 23:40 10/15/2019 Maalox (Calcium Carbonate Antacid) PO Oral Suspension 50 mL given. Allergies verified and confirmed 5 rights. Information reviewed with patient including reason for taking this medication, signs of allergic reaction and precautions. Verbalizes understanding. --23:40 10/15/19 Lexie Pabon R.N. 3 Clinical Report - Nurses [facility] Emergency Department [address] [place] [address] Phone #: vzk- [phone] 10/15/2019 21:06 [facility]: [id number] Sex[facility] F : 1990 Age: 29yDISPOSITION / DISCHARGE 23:42 10/15/19. Departure time: 23:42 10/15/2019. Condition at departure: improved and stable. No learning barriers present. Discharge instructions provided and reviewed with the patient. 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 Visit overview and summary of care (CCDA) provided to patient via paper. Patient verbalized understanding. Written instructions provided in [place]. The patient was discharged by the physician. [...] rce(s) Supporting Document(s) ID Date Data Source [id number] 10/15/2019 09:09:00 PM EST [facility] 1 Clinical Report - Physicians/Mid Levels [facility] Emergency Department [address] [place] [address] Phone #: ext- [phone] 10/15/2019 21:06 Patient: [...] conjunctivae. 2 Clinical Report - Physicians/Mid Levels [facility] Emergency Department [address] [place] [address] Phone #: ext- [phone] 10/15/2019 21:06 Patient: [...] PHYSICIAN REQUEST. Troponin-T: (LAURENT: 10/15/2019 21:56) ( [facility] 10/15/2019 22:48) Final results 3 Clinical Report - Physicians/Mid Levels [facility] Emergency Department [address] [place] [address] Phone #: ext- [phone] 10/15/2019 21:06 Patient: MIRIAN RYAN Sex: F : 1990 Age: 29y Test Result Flag Units (Reference) TROPONIN T <0.01 NG/ML (0.00 - 0.10) TROPONIN T0.1 ng/ml Recommended as the clinical threshold value forTroponin T.TSH: (LAURENT: 10/15/2019 21:56) ( [facility] 10/15/2019 23:01) Final results Test Result Flag Units (Reference) TSH 6.33 H uIU/mL (0.47 - 5.01)T4 (Thyroxine): (LAURENT: 10/15/2019 21:56) ( [facility] 10/15/2019 22:59) Final results Test Result Flag Units (Reference) T4 TOTAL 6.7 UG/DL (4.5 - 12.5)Lactic Acid: (LAURENT: 10/15/2019 21:56) ( [facility] 10/15/[facility] 22:40) Final results Test Result Flag Units (Reference) LACTIC ACID 1.5 MMOL/L (0.2 - 2.2)Lipase: (LAURENT: 10/15/2019 21:56) ( [facility] 10/15/2019 22:47) Final results Test Result Flag Units (Reference) LIPASE 30 U/L (13 - 60)BNP: (LAURENT: 10/15/2019 21:56) ( [facility] 10/15/2019 22:59) Final results Test Result Flag Units (Reference) BNP 8 PG/ML (0 - 125)Beta-HCG, Qual Serum: (LAURENT: 10/15/2019 21:56) ( [facility] 10/15/2019 22:41) Final results Test Result Flag Units (Reference) HCG SERUM QUAL NEGATIVE (NORMAL: NEGAT HCG SERUM QL REENTER NEGATIVE (NORMAL: NEGAT { KIT LOT # [id number] ){ KIT EXP [id number] ){ PROCEDURAL CONTROL VALID)D- Dimer: (LAURENT: 10/15/2019 21:56) ( [facility] 10/15/2019 22:35) Final results Test Result [...] 3.40) 4 Clinical Report - Physicians/Mid Levels [facility] Emergency Department [address] [place] [address] Phone #: ext- [phone] 10/15/2019 21:06 Patient: [...] Male GFR Interprentation 20-49 yrs >60 mL/min Jyehxa58-64 yrs >56 mL/min Normal 60-69 yrs >49 mL/min Normal 70-79yrs>42 mL/min Normal 80 and above >35 mL/min Normal Female GFRInterpretation 20-39 yrs >60 mL/min Normal 40-49 yrs >58 mL/minNormal 50-59 yrs >51 mL/min Normal 60-69 yrs >45 mL/min Hkxmsr46-39 yrs >39 mL/min Normal 80 and above [...] ED: HCG Pending Exam CHEST [address] [place] [address] PHONE: [phone] FAX: [phone] Name .................. : BALDEV Shaw Acct Number.................. : [id number] ROOM. ................. : TR-03 MR Number ................... : [id number] Stay type ............. : E/R Discharge Date......... ... : 10/15/19 Admit Date ......... : 10/15/19 Admit Phys .................... : BC CHAIREZ Date of ....... : 1990 Family Phys ................... : TANESHA Ochoa Clinical Report - Physicians/Mid Levels [facility] Emergency Department [address] [place] [address] Phone #: ext- [phone] 10/15/2019 21:06 Patient: MIRIAN RYAN Sex: F : 1990 Age: 29y Phone .................. : [phone] Age ................................ : 29 Film# .................. .:[id number] Sex ................................. : F Unsigned transcriptions are preliminary reports and do not represent a medical or legal document CHEST 2 VIEWS [id number] COMPLETE:10/16/19 00:14 KJE [id number] Reason(s): Chest Pain CHEST X-RAY: FRONTAL AND [...] pain 6 Clinical Report - Physicians/Mid Levels [facility] Emergency Department [address] [place] [address] Phone #: ext- [phone] 10/15/2019 21:06 Patient: [...] Follow-up with: Chris Kruger MD, Cardiology, , [address] [place] [address], [facility] Follow up tomorrow if not better. Call for an appointment. Reason for referral: evaluation, treatment and Atypical chest pain - Non-cardiac. Need ECHO / stress test.(Electronically signed by Arsalan Yancey, Physician 10/16/2019 09:40) Name Value Range Interpretation Code Description Data Chantel rce(s) Supporting Document(s) ID Date Data Source [id number] 10/15/2019 10:15:00 PM EST [facility] ([facility]) Name Value Range Interpretation Code Description Data Chantel rce(s) Supporting Document(s) Drug Screen Urine (SEE NOTE) [facility] ([facility]) SOURCE: Clean Catch Barbiturates NEGATIVE [facility] ([facility] Me dicine [facility]) SOURCE: Clean Catch Amphetamines NEGATIVE [facility] ([facility] Me dicine [facility]) SOURCE: Clean Catch Benzo NEGATIVE [facility] ([facility]) SOURCE: Clean Catch Cocaine NEGATIVE [facility] ([facility]) SOURCE: Clean Catch THC NEGATIVE [facility] ([facility]) SOURCE: Clean Catch Opiates NEGATIVE [facility] ([facility]) SOURCE: Clean Catch PCP NEGATIVE [facility] ([facility]) SOURCE: Clean Catch ID Date Data Source [id number] 10/15/2019 10:15:00 PM EST [facility] ([facility] y Medicine [facility]) Name Value Range Interpretation Code Description Data Chantel rce(s) Supporting Document(s) Color yellow [facility] ([facility]) SOURCE: Clean Catch Urinalysis (SEE NOTE) [facility] ([facility] Med icine [facility]) SOURCE: Clean Catch Source R [facility] ([facility]) SOURCE: Clean Catch Spec Howard 1.010 1.001-1.030 [facility] ([facility] donnie Medicine [facility]) SOURCE: Clean Catch Clarity clear [facility] ([facility] Medic [facility]) SOURCE: Clean Catch Bilirubin NEG [facility] ([facility]) SOURCE: Clean Catch Glucose NORM [facility] ([facility]) SOURCE: Clean Catch pH 7 5-9 [facility] ([facility]) SOURCE: Clean Catch Nitrite NEG [facility] ([facility]) SOURCE: Clean Catch Protein NEG [facility] ([facility]) SOURCE: Clean Catch Ketone NEG [facility] ([facility]) SOURCE: Clean Catch Leuk Est NEG [facility] ([facility]) SOURCE: Clean Catch Blood NEG [facility] ([facility] Medic [facility]) SOURCE: Clean Catch Urobilinogen NOR MED[facility] ([facility] dicine [facility]) SOURCE: Clean Catch Microscopic Not Indicate [facility] ([facility] Medicine [facility]) SOURCE: Clean Catch ID Date Data Source [id number] 10/15/2019 10:57:00 PM EST [facility] Name Value Range Interpretation Code Description Data Chantel rce(s) Supporting Document(s) DRUG SCREEN URINE [facility] URINE DRUG SCREEN Amphetamine [Presence] in Urine by Screen method NEGATIVE NORMAL: N EGATIVE [facility] BARBITURATES NEGATIVE NORMAL: NEGATIVE [facility] BENZO NEGATIVE NORMAL: NEGATIVE [facility] COCAINE NEGATIVE NORMAL: NEGATIVE [facility] Tetrahydrocannabinol [Presence] in Urine NEGATIVE NORMAL: NEGATIVE [facility] OPIATES NEGATIVE NORMAL: NEGATIVE [facility] Phencyclidine [Presence] in Urine by Screen method NEGATIVE NOR MAL: NEGATIVE [facility] \\BLDo\\URINE DRUG SCR EEN INTERPRETATION\\BLDx\\ THE CUTOFFF LEVELS FOR DETECTION ARE FOLLOWS: AMPHETAMINES 1000 ng/ml BARBITUARATES 200 ng/ml BENZODIAZEPINES 100 ng/ml THC 50 ng/ml PHENCYCLIDINE 25 ng/ml OPIATES 300 ng/ml COCAINE 300 ng/ml ALL POSITIVES ARE CONSIDERED PRESUMPTIVE POSITIVE CONFIRMATION WILL BE PERFORMED AT PHYSICIAN REQUEST. ID Date Data Source [id number] 10/15/2019 10:52:00 PM EST [facility] Name Value Range Interpretation Code Description Data Chantel rce(s) Supporting Document(s) [facility] S[facility] R [facility] al COLOR yellow NORMAL: Yellow [facility] ospital CLARITY clear NORMAL: Clear [facility] spital Specific gravity of Urine by Test strip 1.010 1.001 - 1.030 [facility] pH 7 5 - 9 [facility] Glucose [Mass/volume] in Urine by Test strip NORM NORMAL: Negat [facility] Bilirubin.total [Presence] in Urine by Test strip NEG NORMAL: Negative [facility] Ketones [Presence] in Urine by Test strip NEG NORMAL: Negative [facility] Protein [Mass/volume] in Urine by Test strip NEG NORMAL: Negat [facility] Nitrite [Presence] in Urine by Test strip NEG NORMAL: Negative [facility] BLOOD NEG NORMAL: Negative [facility] Leukocyte esterase [Presence] in Urine by Test strip NEG CIRILO L: Negative [facility] Urobilinogen [Mass/volume] in Urine by Test strip NOR less chase n 1.0 mg/dL [facility] MICROSCOPIC Not Indicate [facility] o[facility] ID Date Data Source [id number] 10/15/2019 09:56:00 PM EST [facility] ([facility]) Name Value Range Interpretation Code Description Data Chantel rce(s) Supporting Document(s) Creatine kinase [Enzymatic activity/volume] in Serum or Plasma 69 U /L 30-170 [facility] ([facility]) Troponin T.cardiac [Mass/volume] in Serum or Plasma <0.01 ng/mL 0.00- 0.10 [facility] ([facility]) TROPONIN T 0.1 ng/ml Recommended as the clinical th reshold value for Troponin T. Thyroxine (T4) [Mass/volume] in Serum or Plasma 6.7 ug/dL 4.5-12.5 [facility] ([facility]) Natriuretic peptide.B prohormone N-Terminal [Mass/volu me] in Serum or Plasma 8 pg/mL 0-125 [facility] ([facility]) Thyrotropin [Units/volume] in Serum or Plasma 6.33 uIU/mL 0. 47-5.01 Above high normal [facility] ([facility]) ID Date Data Source [id number] 10/15/2019 09:56:00 PM EST [facility] ([facility]) Name Value Range Interpretation Code Description Data Chantel rce(s) Supporting Document(s) Comprehensive Metabo (SEE NOTE) MEDE NT ([facility]) COMPREHENSIVE METABOLIC PANEL Sodium 141 meq/L 134-153 [facility] ([facility]) Potassium 3.8 meq/L 3.6-5.0 [facility] ([facility]) Co2 28 meq/L 22-30 [facility] ([facility]) Glucose 73 mg/dL 65-110 [facility] ([facility]) Chloride 103 meq/L 98-107 [facility] ([facility]) Creatinine 0.8 mg/dL 0.7-1.5 [facility] ([facility]) BUN/Creat 18 8-27 [facility] ([facility]) BUN 14 mg/dL 7-21 [facility] ([facility]) Total Protein 7.2 g/dL 6.3-8.2 [facility] ([facility]) Albumin 4.6 g/dL 3.9-5.0 [facility] ([facility]) Globulin 2.6 GM/DL 2.4-3.2 [facility] ([facility]) Calcium 9.7 mg/dL 8.4-10.2 [facility] ([facility]) A/G Ratio 1.8 0.8-2.0 [facility] ([facility]) Total Bili 0.7 mg/dL 0.2-1.3 [facility] ([facility]) Sgot/Ast 13 U/L 5-40 [facility] ([facility]) Alkaline Phos 59 U/L 38-126 [facility] ([facility]) SGPT/Alt 8 U/L 7-56 [facility] ([facility]) Non-Aa GFR >60 mL/min [facility] ([facility]) Anion Gap 10.0 mmol/L 8.0-16.0 [facility] ([facility]) Age 29 yrs [facility] ([facility]) Afr Amer GFR >60 mL/min [facility] ([facility]) Male GFR Interprentation 20-49 yrs >60 mL/min [...] >32 mL/min Normal ID Date Data Source [id number] 10/15/2019 09:56:00 PM EST [facility] ([facility]) Name Value Range Interpretation Code Description Data Chantel rce(s) Supporting Document(s) Lipase [Enzymatic activity/volume] in Serum or Plasma 30 U/L 13-6 0 [facility] ([facility]) ID Date Data Source [id number] 10/15/2019 09:56:00 PM EST [facility] ([facility]) Name Value Range Interpretation Code Description Data Chantel rce(s) Supporting Document(s) HCG Serum QL Reenter NEGATIVE MEDE NT ([facility]) { KIT LOT # [id number] ) { KIT EXP DATE 03-21-21 ) { PROCEDURAL CONTROL VALID ) HCG Serum Qual NEGATIVE [facility] ([facility]) ID Date Data Source [id number] 10/15/2019 09:56:00 PM EST [facility] ([facility]) Name Value Range Interpretation Code Description Data Chantel rce(s) Supporting Document(s) Fibrin D-dimer [Presence] in Platelet poor plasma 0.30 ug/mL 0.27-0.5 0 [facility] ([facility]) Lactate [Mass/volume] in Serum or Plasma 1.5 mmol/L 0.2-2.2 [facility] ([facility]) ID Date Data Source [id number] 10/15/2019 09:56:00 PM EST [facility] ([facility]) Name Value Range Interpretation Code Description Data Chantel rce(s) Supporting Document(s) RBC 4.19 10^6/uL 4.20-5.40 Below low normal [facility] ([facility]) CBC W/Automated Diff (SEE NOTE) MEDE NT ([facility]) COMPLETE BLOOD COUNT WBC 7.2 10^3/uL 4.2-11.0 [facility] ([facility]) Hemoglobin 12.6 g/dL 12.0-16.0 [facility] ([facility]) MCV 89.0 fL 81.0-101 [facility] ([facility]) Hematocrit 37.3 % 37.0-47.0 [facility] ([facility] Medi cine [facility]) MCHC 33.8 g/dL 31.0-36.0 [facility] ([facility]) RDW 12.6 % 11.5-14.5 [facility] ([facility]) MCH 30.1 pg 27.0-34.0 [facility] ([facility]) Platelets 220 10^3/uL 150-450 [facility] ([facility]) Neut 41.1 % 37.0-80.0 [facility] ([facility] Medic [facility]) MPV 8.6 fL 7.4-10.4 [facility] ([facility]) Lymph 46.4 % 25.0-40.0 Above high normal [facility] ([facility] Medicine [facility]) Eos 3.5 % 0.0-7.0 [facility] ([facility]) Alpine 8.1 % 3.0-8.0 Above high normal [facility] ([facility]) %NRBC 0.0 % 0.0-0.0 [facility] ([facility]) Baso 0.6 % 0.0-2.5 [facility] ([facility]) %Ig 0.3 % 0.0-0.0 Above high normal [facility] ([facility] Medicine [facility]) #Lymph 3.33 10^3/uL 0.60-3.40 [facility] ([facility]) #Alpine 0.58 10^3/uL 0.00-0.90 [facility] ([facility]) #Neut 2.95 10^3/uL 2.00-6.90 [facility] ([facility]) #Ig 0.02 10^3/uL 0.00-0.10 [facility] ([facility] dicine [facility]) #Baso 0.04 10^3/uL 0.00-0.20 [facility] ([facility] dicine [facility]) #Eos 0.25 10^3/uL 0.00-0.70 [facility] ([facility] dicine [facility]) RBC Morph NOT INDICATED [facility] ([facility] M edicine [facility]) Manual Diff NOT INDICATED [facility] ([facility] Medicine [facility]) #NRBC 0.00 10^3/uL 0.00-0.00 [facility] ([facility] Me dicine [facility]) ID Date Data Source [id number] 10/15/2019 11:01:00 PM [facility] Name Value Range Interpretation Code Description Data Chantel rce(s) Supporting Document(s) Thyrotropin [Units/volume] in Serum or Plasma by Detec tion limit <= 0.05 mIU/L 6.33 uIU/mL 0.47 - 5.01 H [facility] ID Date Data Source [id number] 10/15/2019 10:59:00 PM [facility] Name Value Range Interpretation Code Description Data Chantel rce(s) Supporting Document(s) BNP 8 PG/ML 0 - 125 [facility] al ID Date Data Source [id number] 10/15/2019 10:59:00 PM [facility] Name Value Range Interpretation Code Description Data Chantel rce(s) Supporting Document(s) Thyroxine (T4) [Mass/volume] in Serum or Plasma 6.7 UG/DL 4.5 - 12.5 [facility] ID Date Data Source [id number] 10/15/2019 10:48:00 PM [facility] Name Value Range Interpretation Code Description Data Chantel rce(s) Supporting Document(s) TROPONIN T <0.01 NG/ML 0.00 - 0.10 [facility] ospital TROPONIN T0.1 ng/ml Recommended as the c linical threshold value forTroponin T. ID Date Data Source [id number] 10/15/2019 10:47:00 PM [facility] Name Value Range Interpretation Code Description Data Chantel rce(s) Supporting Document(s) Creatine kinase [Enzymatic activity/volume] in Serum or Plasma 6 9 U/L 30 - 170 [facility] ID Date Data Source [id number] 10/15/2019 10:47:00 PM [facility] Name Value Range Interpretation Code Description Data Chantel rce(s) Supporting Document(s) COMPREHENSIVE METABOLIC PANEL [facility] COMPREHENSIVE METABOLIC PANEL Sodium [Moles/volume] in Serum or Plasma 141 mEq/L 134 - 153 [facility] Potassium [Moles/volume] in Serum or Plasma 3.8 mEq/L 3.6 - 5.0 [facility] Chloride [Moles/volume] in Serum or Plasma 103 mEq/L 98 - 107 [facility] Carbon dioxide, total [Moles/volume] in Serum or Plasma 28 MEQ/L 22 - 30 [facility] Glucose [Mass/volume] in Serum or Plasma 73 MG/DL 65 - 110 [facility] BUN 14 MG/DL 7 - 21 [facility] Creatinine [Mass/volume] in Serum or Plasma 0.8 MG/DL 0.7 - 1.5 [facility] BUN/CREAT 18 8 - 27 [facility] Protein [Mass/volume] in Serum or Plasma 7.2 G/DL 6.3 - 8.2 [facility] Albumin [Mass/volume] in Serum or Plasma 4.6 G/DL 3.9 - 5.0 [facility] Globulin [Mass/volume] in Serum by calculation 2.6 GM/DL 2.4 - 3.2 [facility] A/G RATIO 1.8 0.8 - 2.0 [facility] Calcium [Mass/volume] in Serum or Plasma 9.7 MG/DL 8.4 - 10.2 [facility] Bilirubin.total [Mass/volume] in Serum or Plasma 0.7 MG/DL 0.2 - 1.3 [facility] Alkaline phosphatase [Enzymatic activity/volume] in Serum or Plasma 59 U/L 38 - 126 [facility] Aspartate aminotransferase [Enzymatic activity/volume] in Serum or Plasma 13 U/L 5 - 40 [facility] Alanine aminotransferase [Enzymatic activity/volume] in Seru m or Plasma 8 U/L 7 - 56 [facility] Anion gap 3 in Serum or Plasma 10.0 mmol/L 8.0 - 16.0 [facility] AGE 29 yrs [facility] NON-AA GFR >60 mL/min [facility] ital AFR AMER GFR >60 mL/min [facility] Ho spital Male GFR In terprentation [...] >32 mL/min Normal ID Date Data Source [id number] 10/15/2019 10:47:00 PM EST [facility] Name Value Range Interpretation Code Description Data Chantel rce(s) Supporting Document(s) Lipase [Enzymatic activity/volume] in Serum or Plasma 30 U/L 13 - 60 [facility] ID Date Data Source [id number] 10/15/2019 10:41:00 PM [facility] Name Value Range Interpretation Code Description Data Chantel rce(s) Supporting Document(s) HCG SERUM QUAL NEGATIVE NORMAL: NEGATIVE [facility] HCG SERUM QL REENTER NEGATIVE NORMAL: NEGATIVE [facility] { KIT LOT # [id number] ){ KIT EXP DATE 03-21-21 ){ PROCEDURAL CONTROL VALID ) ID Date Data Source [id number] 10/15/2019 10:40:00 PM [facility] Name Value Range Interpretation Code Description Data Chantel rce(s) Supporting Document(s) Lactate [Moles/volume] in Serum or Plasma 1.5 MMOL/L 0.2 - 2.2 [facility] ID Date Data Source [id number] 10/15/2019 10:35:00 PM [facility] Name Value Range Interpretation Code Description Data Chantel rce(s) Supporting Document(s) Fibrin D-dimer FEU [Mass/volume] in Platelet poor plasma 0.30 ug /mL 0.27 - 0.50 [facility] ID Date Data Source [id number] 10/15/2019 10:28:00 PM [facility] Name Value Range Interpretation Code Description Data Chantel rce(s) Supporting Document(s) CBC W/AUTOMATED DIFF [facility] COMPLETE BLOOD COUNT Leukocytes [#/volume] in Blood by Automated count 7.2 10^3/uL 4.2 - 1 1.0 [facility] Erythrocytes [#/volume] in Blood by Automated count 4.19 10^6/uL 4. 20 - 5.40 L [facility] Hemoglobin [Mass/volume] in Blood 12.6 g/dL 12.0 - 16.0 [facility] Hematocrit [Volume Fraction] of Blood by Automated count 37.3 % 3 7.0 - 47.0 [facility] Erythrocyte mean corpuscular volume [Entitic volume] by Auto mated count 89.0 fL 81.0 - 101 [facility] Erythrocyte mean corpuscular hemoglobin [Entitic mass] by Automated count 30.1 pg 27.0 - 34.0 [facility] Erythrocyte mean corpuscular hemoglobin concentration [Mass/volume] by Automated count 33.8 g/dL 31.0 - 36.0 [facility] Erythrocyte distribution width [Ratio] by Automated count 12.6 % 11.5 - 14.5 [facility] Platelets [#/volume] in Blood by Automated count 220 10^3/uL 150 - 45 0 [facility] Platelet mean volume [Entitic volume] in Blood by Automated count 8.6 fL 7.4 - 10.4 [facility] Neutrophils/100 leukocytes in Blood by Automated count 41.1 % 37. 0 - 80.0 [facility] Lymphocytes/100 leukocytes in Blood by Manual count 46.4 % 25.0 - 40.0 H [facility] Monocytes/100 leukocytes in Blood by Automated count 8.1 % 3.0 - 8.0 H [facility] Eosinophils/100 leukocytes in Blood by Automated count 3.5 % 0.0 - 7.0 [facility] Basophils/100 leukocytes in Blood by Automated count 0.6 % 0.0 - 2.5 [facility] %IG 0.3 % 0.0 - 0.0 H [facility] al %NRBC 0.0 % 0.0 - 0.0 [facility] Neutrophils [#/volume] in Blood by Automated count 2.95 10^3/uL 2.00 - 6.90 [facility] Lymphocytes [#/volume] in Blood by Automated count 3.33 10^3/uL 0.60 - 3.40 [facility] Monocytes [#/volume] in Blood by Automated count 0.58 10^3/uL 0.00 - 0.90 [facility] Eosinophils [#/volume] in Blood by Automated count 0.25 10^3/uL 0.00 - 0.70 [facility] Basophils [#/volume] in Blood by Automated count 0.04 10^3/uL 0.00 - 0.20 [facility] #IG 0.02 10^3/uL 0.00 - 0.10 [facility] ospital #NRBC 0.00 10^3/uL 0.00 - 0.00 [facility] MANUAL DIFF NOT INDICATED [facility] RBC MORPH NOT INDICATED [facility] Procedure Social History Code Duration Value Status Description Data Source(s ) Smoking 10/08/2020 12:00:00 AM EST Patient has never smoked co mpleted Patient has never smoked [facility] ([facility] ) Smoking 10/11/2019 12:00:00 AM EST Patient has never smoked co mpleted Patient has never smoked [facility] ([facility]) Vital Signs ID Date Data Source UNK Name Value Range Interpretation Code Description Data Source(s) [place] body weight 140 [lb_av] 140 [lb_av] MEDEN T ([facility]) Oxygen saturation in Arterial blood by Pulse oximetry 96 % 96 % [facility] ([facility]) Body temperature 98.1 [degF] 98.1 [degF] [facility] ([facility]) Respiratory rate 18 /min 18 /min [facility] ( [facility]) Heart rate 91 /min 91 /min [facility] ([facility]) Body mass index (BMI) [Ratio] 27.0 kg/m2 27.0 k g/m2 [facility] ([facility]) Body weight 181.50 [lb_av] 181.50 [lb_av] MEDEN T ([facility]) Body height 68.8 [in_i] 68.8 [in_i] [facility] ([facility]) 5'8.80" Diastolic blood pressure 68 mm[Hg] 68 mm[Hg] [facility] ([facility]) Systolic blood pressure 116 mm[Hg] 116 mm[Hg] M EDENT ([facility]) Body mass index (BMI) [Ratio] 26.5 kg/m2 26.5 k g/m2 [facility] ([facility]) Diastolic blood pressure 74 mm[Hg] 74 mm[Hg] [facility] ([facility]) Systolic blood pressure 119 mm[Hg] 119 mm[Hg] M EDENT ([facility]) Respiratory rate 18 /min 18 /min [facility] ( [facility]) Heart rate 102 /min 102 /min [facility] ([facility] Body height 69.5 [in_i] 69.5 [in_i] [facility] 5'9.50" Body weight 182.12 [lb_av] 182.12 [lb_av] MEDEN T ([facility]) [place] body weight 140 [lb_av] 140 [lb_av] MEDEN T ([facility]) Oxygen saturation in Arterial blood by Pulse oximetry 98 % 98 % [facility] ([facility]) Body temperature 98.3 [degF] 98.3 [degF] [facility] ([facility]) Respiratory rate 18 /min 18 /min [facility] ( [facility]) Heart rate 87 /min 87 /min [facility] ([facility]) Body mass index (BMI) [Ratio] 27.0 kg/m2 27.0 k g/m2 [facility] ([facility]) Body weight 182.12 [lb_av] 182.12 [lb_av] MEDEN T ([facility]) Body height 68.8 [in_i] 68.8 [in_i] [facility] ([facility]) 5'8.80" Diastolic blood pressure 74 mm[Hg] 74 mm[Hg] [facility] ([facility]) Systolic blood pressure 116 mm[Hg] 116 mm[Hg] M [facility] ([facility] [facility] Body mass index (BMI) [Ratio] 26.3 kg/m2 26.3 k g/m2 [facility] ([facility]) Body weight 178.00 [lb_av] 178.00 [lb_av] MEDEN T ([facility]) Body height 69 [in_i] 69 [in_i] [facility] ([facility]) 5'9" Body mass index (BMI) [Ratio] 26.4 kg/m2 26.4 k g/m2 [facility] ([facility]) Diastolic blood pressure 77 mm[Hg] 77 mm[Hg] [facility] ([facility]) Systolic blood pressure 108 mm[Hg] 108 mm[Hg] M EDENT ([facility]) Respiratory rate 18 /min 18 /min [facility] ( [facility]) Heart rate 92 /min 92 /min [facility] ([facility] Body height 69.5 [in_i] 69.5 [in_i] [facility] 5'9.50" Body weight 181.12 [lb_av] 181.12 [lb_av] MEDEN T ([facility]) Body temperature 99.4 [degF] 99.4 [degF] [facility] ([facility]) [place] body weight 140 [lb_av] 140 [lb_av] MEDEN T ([facility]) Oxygen saturation in Arterial blood by Pulse oximetry 95 % 95 % [facility] ([facility]) Body temperature 98.3 [degF] 98.3 [degF] [facility] ([facility]) Respiratory rate 20 /min 20 /min [facility] ( [facility]) Heart rate 95 /min 95 /min [facility] ([facility]) Body mass index (BMI) [Ratio] 25.7 kg/m2 25.7 k g/m2 [facility] ([facility]) Body weight 173.25 [lb_av] 173.25 [lb_av] MEDEN T ([facility]) Body height 68.8 [in_i] 68.8 [in_i] [facility] ([facility]) 5'8.80" Diastolic blood pressure 74 mm[Hg] 74 mm[Hg] [facility] ([facility]) Systolic blood pressure 114 mm[Hg] 114 mm[Hg] M EDENT ([facility]) Oxygen saturation in Arterial blood by Pulse oximetry 99 % 99 % [facility] ([facility]) Body temperature 98.5 [degF] 98.5 [degF] [facility] ([facility]) Respiratory rate 18 /min 18 /min [facility] ( [facility]) Heart rate 91 /min 91 /min [facility] ([facility]) Body mass index (BMI) [Ratio] 25.8 kg/m2 25.8 k g/m2 [facility] ([facility]) Body weight 174.00 [lb_av] 174.00 [lb_av] MEDEN T ([facility]) Body height 68.8 [in_i] 68.8 [in_i] [facility] ([facility]) 5'8.80" Diastolic blood pressure 74 mm[Hg] 74 mm[Hg] [facility] ([facility]) Systolic blood pressure 116 mm[Hg] 116 mm[Hg] M EDENT ([facility]) Heart rate 101 /min 101 /min [facility] ([facility]) Diastolic blood pressure 91 mm[Hg] 91 mm[Hg] [facility] ([facility]) Systolic blood pressure 142 mm[Hg] 142 mm[Hg] M EDENT ([facility]) Body mass index (BMI) [Ratio] 25.8 kg/m2 25.8 k g/m2 [facility] ([facility]) Body weight 175.00 [lb_av] 175.00 [lb_av] MEDEN T ([facility]) Body height 69 [in_i] 69 [in_i] [facility] ([facility]) 5'9" ID Date Data Source [id number] 10/22/2020 12:32:31 PM [facility] Name Value Range Interpretation Code Description Data Source(s) WEIGHT RECORDED 176 lb 176 lb [facility] Body height Measured 69 in 69 in [facility]
[2020-11-23 11:50] VITALS: BP 124/81
[2020-11-23 13:07] LABS: CHLAMYDIA DNA AMPLIFICATION NEGATIVE (NEGATIVE); GC DNA AMPLIFICATION NEGATIVE (NEGATIVE)
== END 2020-11-23 11:51 | disposition home or self-care (01) ==
LOC: M ED 09:17
DX: O20.9 Hemorrhage in early pregnancy, unspecified (principal); Z3A.01 Less than 8 weeks gestation of pregnancy; Z88.1 Allergy status to other antibiotic agents; Z88.2 Allergy status to sulfonamides; Z88.8 Allergy status to other drugs, medicaments and biological substances

== ENCOUNTER → 2020-11-25 | Outpatient (CLI) | payer OTHER | LOC: M PLALAB 08:24 | PROVIDERS: ATTEND Physician Assistant | DX: O20.9 Hemorrhage in early pregnancy, unspecified (principal) ==

== ENCOUNTER 2020-12-06 16:57 | Emergency (ER) | payer OTHER ==
[~2020-12-06] VITALS: Ht 175.3 cm; Wt 81.7 kg
[2020-12-06] MEDS ORDERED: NS 1,000 ML IV ONE (17:15)
[2020-12-06 17:50] LABS: BASO % 0.5 % (0.0-1.0); EOS # 0.2 10^3/uL (0.0-0.5); EOS % 1.7 % (0.0-3.0); HEMATOCRIT 38.3 % (36.0-47.0); HEMOGLOBIN 12.5 g/dl (12.0-15.5); LYMPH # 2.2 10^3/uL (1.5-5.0); LYMPH % 25.3 % (24.0-44.0); MEAN CORPUSCULAR HEMOGLOBIN 28.9 pg (27.0-33.0); MEAN CORPUSCULAR HGB CONC 32.6 g/dl (32.0-36.5); MEAN CORPUSCULAR VOLUME 88.5 fl (80.0-96.0); MONO # 0.7 10^3/uL (0.0-0.8); MONO % 7.5 % (2.0-8.0); NEUTROPHILS # 5.7 10^3/uL (1.5-8.5); NEUTROPHILS % 64.8 % (36.0-66.0); PLATELET COUNT, AUTOMATED 254 10^3/uL (150-450); RED BLOOD COUNT 4.33 10^6/uL (4.00-5.40); WHITE BLOOD COUNT 8.8 10^3/uL (4.0-10.0)
[2020-12-06 17:55] LABS: APPEARANCE, URINE HAZY (CLEAR); BACTERIA, URINE AUTO NEGATIVE (NEGATIVE); BILIRUBIN, URINE AUTO NEGATIVE (NEGATIVE); BLOOD, URINE BLOOD 3+ (NEGATIVE); COLOR, URINE YELLOW (YELLOW); GLUCOSE, URINE (UA) AUTO NEGATIVE (NEGATIVE); KETONE, URINE AUTO NEGATIVE (NEGATIVE); LEUKOCYTE ESTERASE, URINE AUTO NEGATIVE (NEGATIVE); MUCUS, URINE SMALL (NEGATIVE); NITRITE, URINE AUTO NEGATIVE (NEGATIVE); PROTEIN, URINE AUTO NEGATIVE (NEGATIVE); RBC, URINE AUTO TNTC /HPF (0-3); SPECIFIC GRAVITY URINE AUTO 1.026 (1.002-1.035); SQUAMOUS EPITHELIAL CELL UR AU 1 /HPF (0-6); UROBILINOGEN, URINE AUTO 0.2 mg/dL (0.0-2.0); WBC, URINE AUTO 1 /HPF (0-3)
--- NOTE | 2020-12-06 18:09 | REPVR ---
PROCEDURE INFORMATION: Exam: US First Trimester, Transabdominal Exam date and time: 12/06/2020 5:42 PM Age: 30 years old Clinical indication: Lmp or gestational age (in weeks): 8wks; Other: Vag bleeding; ; Additional info: Vaginal bleeding TECHNIQUE: Imaging protocol: Real-time transabdominal obstetrical ultrasound of the maternal pelvis and a first trimester , less than 14 weeks 0 days, with image documentation. COMPARISON: No relevant prior studies available. FINDINGS: Gestation: Single irregularly-shaped gestational sac demonstrated in the uterus. Large perigestational bleed measuring 4.2 x 1.6 x 3.6 cm demonstrated. Single pole measuring 5 mm demonstrated. Embryonic/ heart rate: Absent cardiac activity. BIOMETRY: Gestational age (AUA): Gestational age is 6 weeks 2 days based on crown-rump length versus 8 weeks using menstrual dates of 10/11/2020. MATERNAL: Uterus: Unremarkable. Cervix: Unremarkable. Right adnexa: Unremarkable. Left adnexa: Unremarkable. Intraperitoneal space: No intraperitoneal free fluid. IMPRESSION: Findings consistent with early loss as described above. Electronically signed by: Jassi Finley On 12/06/2020 18:09:49 PM
[2020-12-06 18:55] VITALS: BP 122/78
== END 2020-12-06 18:57 | disposition home or self-care (01) ==
LOC: M ED 16:57
DX: O03.4 Incomplete spontaneous abortion without complication (principal); Z3A.08 8 weeks gestation of pregnancy; O99.341 Other mental disorders complicating pregnancy, first trimester; F33.9 Major depressive disorder, recurrent, unspecified; F41.9 Anxiety disorder, unspecified; Z88.1 Allergy status to other antibiotic agents

== ENCOUNTER → 2020-12-15 | Outpatient (CLI) | payer OTHER ==
[~2020-12-15] MED LIST changes: +FLON27.5; +SING10TA32 PO
== END ==
LOC: M LABSMTC 14:12
PROVIDERS: ATTEND Anesthesiology
DX: Z01.812 Encounter for preprocedural laboratory examination (principal); Z20.822 Contact with and (suspected) exposure to COVID-19
CPT/HCPCS: G0463; U0002

== ENCOUNTER 2020-12-17 06:15 | Day surgery (SDC) | payer OTHER ==
[~2020-12-17] VITALS: Ht 175.3 cm; Wt 78.0 kg
[~2020-12-17 06:15] MED LIST changes: +LIDOCAINE 1% MDV 20ML VIAL SQ PRN; +LR 1,000 ML IV ONE
[2020-12-17 06:42] LABS: HEMATOCRIT 37.8 % (36.0-47.0); MEAN CORPUSCULAR HEMOGLOBIN 30.3 pg (27.0-33.0); MEAN CORPUSCULAR HGB CONC 34.4 g/dl (32.0-36.5); MEAN CORPUSCULAR VOLUME 88.1 fl (80.0-96.0); PLATELET COUNT, AUTOMATED 250 10^3/uL (150-450); RED BLOOD COUNT 4.29 10^6/uL (4.00-5.40)
[2020-12-17] MEDS ORDERED: METHYLERGONOVINE MALEATE 0.2 MG/ML VIAL (J2210) As Ordered ONE (07:17)
[2020-12-17] MEDS ORDERED: LIDOCAINE 1% SDV 30ML VIAL As Ordered ONE (07:17)
[2020-12-17] MEDS ORDERED: dexameTHASONE 4 MG/ML 1ML VIAL (J1100 PER 1MG) As Ordered ONE (07:19)
[2020-12-17] MEDS ORDERED: fentaNYL 100 MCG/2 ML INJECTION (J3010) As Ordered ONE (07:19)
[2020-12-17] MEDS ORDERED: MIDAZOLAM INJ 2MG/2ML VIAL (J2250 PER 1MG) As Ordered ONE (07:19)
[2020-12-17] MEDS ORDERED: LIDOCAINE 2% 100MG/5ML SDV (FOR ANES.) As Ordered ONE (07:19)
[2020-12-17] MEDS ORDERED: KETOROLAC 60MG 2ML VIAL As Ordered ONE (07:19)
[2020-12-17] MEDS ORDERED: propofoL 200 MG/20 ML VIAL As Ordered ONE (07:19)
[2020-12-17] MEDS ORDERED: ONDANSETRON 4MG/2ML VIAL As Ordered ONE ×2 (07:19→10:17)
[2020-12-17] MEDS ORDERED: SCOPOLAMINE 1MG TRANSDERMAL PATCH TOP ONE (07:35)
[2020-12-17] MEDS ORDERED: LACRILUBE (AKWA TEARS) OPHTH OINT 3.5 GM As Ordered ONE (08:04)
[2020-12-17] MEDS ORDERED: ONDANSETRON 4MG/2ML VIAL IV PRN ×2 (08:55→10:20)
[2020-12-17] MEDS ORDERED: DOXYCYCLINE HYCLATE 100MG TABLET PO ONE (08:55)
[2020-12-17] MEDS ORDERED: LR 1,000 ML IV SCH (08:55)
[2020-12-17] MEDS ORDERED: oxyCODONE 5MG TAB PO PRN (08:55)
[2020-12-17] MEDS ORDERED: fentaNYL 100 MCG/2 ML INJECTION (J3010) IV PRN (08:55)
[2020-12-17] MEDS ORDERED: ACETAMINOPHEN 500 MG TAB PO ONE (08:55)
[2020-12-17] MEDS ORDERED: METOCLOPRAMIDE INJ 10MG/2ML VIAL (J2765 PER 1) IV ONE (10:40)
[2020-12-17 11:20] VITALS: BP 132/88
--- NOTE | 2020-12-17 11:39 | ROOPDOC ---
[facility] Report Of Operation Report of Operation DATE OF PROCEDURE: 12/17/20 PREPROCEDURE DIAGNOSES: embryonic demise at 7-8 weeks. POSTPROCEDURE DIAGNOSES: same. PROCEDURE: D+E+C. SURGEON: Carly Montoya MD ANESTHESIA: general via LMA. ESTIMATED BLOOD LOSS: Approximately 50 mL. COMPLICATIONS: none. FINDINGS: Moderate amount of POC's. Anteverted uterus. PROCEDURE NOTE: The patient was taken to the OR where LMA anesthesia was induced. She was prepped and draped in a sterile fashion in the dorsal lithotomy position. The bladder was emptied with a catheter. A speculum was placed in the vagina. The anterior lip of the cervix was grasped with a tenaculum. The cervix was dilated with tapered dilators. A #9 mm suction curette was inserted through the internal os. The suction device was activated and the curette was gently rotated until products of conception were noted coming through the suction tubing. Sharp curettage was performed. The uterine cavity was deemed empty. All instruments removed. Sponge and instrument counts were correct. The patient went to the in stable condition. CARLY MONTOYA MD Dec 17, 2020 11:39
== END 2020-12-17 11:23 | disposition home or self-care (01) ==
LOC: M SDC 06:15
PROVIDERS: ATTEND Specialist
DX: O02.1 Missed abortion (principal)
CPT/HCPCS: 36415; 59820; 85027; 88305; J1100; J1885; J2250; J2405; J2765; J3010

== ENCOUNTER → 2021-04-13 | Outpatient (CLI) | payer OTHER ==
[~2021-04-13] MED LIST changes: -LIDOCAINE 1% MDV 20ML VIAL SQ PRN; -LR 1,000 ML IV ONE
--- NOTE | 2021-04-14 14:34 | SLEEPHOME ---
DIAGNOSTIC HOME SLEEP STUDY DATE: 04/13/2021 ORDERED BY: Oscar Victor PA-C Diagnostic home sleep testing was performed due to concern for the obstructive sleep apnea syndrome in this patient with hypersomnia. For testing, a nocturnal T3 respiratory monitoring device was used. Continuous record was made of pulse, oxygen saturation, air flow, chest and abdominal strain, and body position. 9 hours and 59 minutes of data were reviewed. There were 9 hours and 9 minutes marked as time in bed. During the interval marked time in bed, there were 30 respiratory events identified of 10 seconds in duration or greater for a respiratory event index of 3.3. The events were primarily hypopneic and not associated with specific body posture. The patient's baseline pulse rate was 71. Pulse rate range 55 to 104. Baseline saturation was 95%. Lowest oxygen saturation 91%. Testing was performed in both the supine and non-supine positions. IMPRESSION: Borderline diagnostic home sleep testing, with repetitive respiratory patterning, but infrequent respiratory events and no significant oxygen desaturations seen. COMMENT: The frequency and severity of respiratory events generally associated with obstructive sleep apnea syndrome were not identified. Should the patient's symptoms persist or worsen, more comprehensive sleep evaluation may be helpful.
== END ==
LOC: M SLEEP HO 10:49
PROVIDERS: ATTEND Physician Assistant
DX: G47.10 Hypersomnia, unspecified (principal)

== ENCOUNTER → 2021-10-20 | Outpatient (CLI) | payer OTHER | LOC: M LABSMTC 12:57 | PROVIDERS: ATTEND Pediatrics | DX: Z11.52 Encounter for screening for COVID-19 (principal) | CPT/HCPCS: C9803; U0003 ==